=== PATIENT | male | born 1995 | race Caucasian/White ===

== ENCOUNTER 2024-01-04 10:22 | Inpatient (IN) ==
--- NOTE | 2024-01-04 10:47 | Emergency Department Note ---
Impression & Plan Pneumomediastinum, Cannabis hyperemesis syndrome concurrent with and due to cannabis abuse, Intractable nausea and vomiting, Leukocytosis ED Provider Note NAME: STEFAN HAMMOND AGE: 28 SEX: M : 1995 ARRIVES VIA: Walk-In INFORMANT: Patient ED PROVIDER(S): Nick Krause MD CHIEF COMPLAINT: Chest pain PLAN: Disposition: Admit MEDICAL DECISION MAKING: The patient is a pleasant 36-year-old gentleman with a past medical history of regular cannabis use who presents to the emergency department for evaluation of severe chest pain and neck pain which began last night in the setting of smoking marijuana and having intractable nausea and vomiting. He reports he has not had episodes of frequent vomiting in the past but has never been told that this could be due to his cannabis use. He otherwise denies any preceding infectious symptoms including denies fevers, chills, cough, congestion, diarrhea or urinary symptoms. On my evaluation patient is uncomfortable no acute distress, afebrile with heart in the 130s and vital signs otherwise stable. O2 saturation 99% on room air. Lungs are clear bilaterally. At the time my examination there is no overt palpable crepitus of the neck or chest. EKG is without overt acute ischemia. Per my preliminary independent interpretation, chest xray demonstrates pneumomediastinum without pneumothorax or pleural effusion. No consolidations are noted. WBC 18.5 K with neutrophil predominance though no left shift, nonspecific. Hemoglobin and platelets within normal limits. Chemistry without metabolic acidosis. Potassium 3.3 and electrolytes otherwise unremarkable. LFTs are unremarkable. High-sensitivity troponin 4.1, within normal limits. Lipase not elevated. Patient was treated with IV fluid hydration and Zofran but still with intermittent nausea/vomiting/retching. He was subsequent treated with IV Pepcid, Reglan, IV diphenhydramine for GI spasm and topical capsaicin with good effect and resolution of the patient's vomiting. Patient was treated empirically with IV Zosyn after blood cultures obtained while additional assessment was in progress. Case was discussed with pulmonology, Dr. Murillo. Appreciate consultation and recommendations. Agrees with CT imaging with p.o. contrast to assess for esophageal perforation. If perforation suggested patient would require transfer to tertiary care center where CT surgery is available. However if no esophageal injury is noted then it is reasonable to admit the patient to our facility. CT of the neck and chest was performed with IV and oral Gastrografin contrast. This was negative for esophageal injury. Pneumomediastinum is further characterized. Again there is no consolidation or pleural effusions. Upon reevaluation the patient continued to remain improved and comfortable without recurrence of vomiting. Heart rate had normalized to the 60s and blood pressure remained stable. Patient remained afebrile. Case was discussed with Capri Black, [facility] PAC, with Dr. Ayala, [facility] hospitalist who will evaluate the patient for admission. Case with [facility] [facility] by admitting team and myself. While patient's Gastrografin CT imaging is reassuring occult esophageal injury may not be completely excluded and so transfer was recommended in order to observe in a facility where the patient could receive immediate treatment if he were to clinically decline and concern for mediastinitis be raised. Patient did agree with request for transfer to tertiary care facility and case management did [place] and [place] he [place] [facility] [place] Case was discussed with Dr. Moya [facility] [place]. Appreciate consultation and recommendations. He was able to personally review the patient's CT images which were electronically transferred via [employer]. He felt the CT images with Gastrografin poor quality images and very reassuring and did not feel transfer for the patient was necessary as he considered - with high certainty - that esophageal injury did not occur. He would be readily available for our inpatient team consultation as needed. Recommends observation and if he does well over the next 24 hours then discharged with outpatient follow-up is appropriate. Dr. Ayala was updated and was in agreement this plan and will admit the patient for further management. The patient was also updated and was in agreement with this plan and continued to appear improved on my numerous reassessments. Dr. Marcum, GI, updated. PPI ordered per recommendations. Appreciate consultations and recommendations. Triage Nursing notes reviewed and agree them. Prior/external medical records reviewed Vital Signs: reviewed Differential diagnosis: Cardiac ischemia, aortic dissection, pulmonary embolism, pneumothorax, pneumonia, pericarditis, myocarditis, esophageal rupture, GERD, cholecystitis, pancreatitis, musculoskeletal, as well as other pathologies. ER treatment provided: See below. Diagnostics interpreted by me: ECG: Sinus tachycardia, 105 bpm, no ectopy, no overt ST elevation or depression. Cardiac Monitoring: An order for continuous cardiac monitoring was placed and demonstrated Sinus tachycardia, 105 bpm, no ectopy. Laboratory studies: See below Imaging studies: See below Consultation(s): Dr. Murillo, [place] pulmonology/[facility]. Capri Black, [facility] PAC, with Dr. Ayala, [facility] hospitalist Dr. Marcum, [facility] [facility] Dr. Moya, [facility] [place]. HPI: The patient is a pleasant 36-year-old gentleman with a past medical history of regular cannabis use who presents to the emergency department for evaluation of severe chest pain and neck pain which began last night in the setting of smoking marijuana and having intractable nausea and vomiting. He reports he has not had episodes of frequent vomiting in the past but has never been told that this could be due to his cannabis use. He otherwise denies any preceding infectious symptoms including denies fevers, chills, cough, congestion, diarrhea or urinary symptoms. ROS: See above HPI for pertinent positives & negatives. A total of 10 systems reviewed and were otherwise negative. VITALS:See Below PHYSICAL EXAMINATION: GENERAL: Awake, alert, uncomfortable-appearing, in no distress HENT: Normocephalic, atraumatic. Oropharynx with dry mucous membranes and otherwise unremarkable. EYES: Normal conjunctiva. Sclera non-icteric. NECK: Supple. No nuchal rigidity. FROM. No JVD. No overt palpable crepitus of the neck or chest. RESPIRATORY: Clear to auscultation. CARDIAC: Tachycardic rate, normal rhythm. Extremities warm and well perfused. Pulses equal. ABDOMEN: Soft, non-distended. No tenderness to palpation. No rebound or guarding. No masses. RECTAL: Deferred. MUSCULOSKELETAL: Chest examination reveals no tenderness. The back is symmetrical on inspection without obvious abnormality. There is no CVA tenderness to palpation. No joint edema. LOWER EXTREMITIES: Calves are equal size bilaterally and non-tender. No edema. No discoloration. NEURO: Normal sensorium. No sensory or motor deficits noted. SKIN: No rash or jaundice noted. ED COURSE: Critical Care: I have personally spent greater than 95 minutes of critical care time in the direct management of this patient. This includes bedside care, interpretation of diagnostic studies, and testing, discussion with consultants, patient, and family members, and other required patient management activities. This 95 minutes is in excess of all separately billable procedures. Nick Krause MD Past Med/Surg History Medical History Marijuana use Lumbar radiculopathy Surgical History No pertinent past surgical history Family History Other Diabetes Social History Smoking Status: Former smoker Tobacco Type: Cigarettes Age Started Using Tobacco: 21; Age Quit Using Tobacco: 26; packs per day: 1; Hx Alcohol Use: No Hx Substance Use: Yes (3 times per week) Non-Prescribed Medications: Marijuana Preferred Language: Martiniquais Feels Safe at Home: Yes Allergies Allergies Allergy/AdvReac Type Severity Reaction Status Date / Time codeine Allergy Severe Anaphylaxis Verified 01/04/24 17:40 Home Meds Home Medications Medication Instructions Recorded Confirmed duloxetine 30 mg capsule,delayed 60 mg PO DAILY 01/04/24 01/04/24 release Previous Rx's Medication Instructions Recorded ibuprofen 800 mg tablet 800 mg PO Q8H PRN pain #30 tabs 08/29/21 Results & Data (ED) Vital Signs Vital Signs - 24 hr 01/04/24 10:31 01/04/24 10:46 01/04/24 10:47 Temperature 36.6 C Temperature Source Temporal Artery Scan Pulse Rate 133 H Pulse Rate [Apical] 99 H Pulse Rate from SpO2 Sensor Respiratory Rate 14 21 Respiratory Effort / Characteristics Non-Labored Non-Labored Respiratory Depth Normal Normal Respiratory Pattern Regular Blood Pressure 125/72 Blood Pressure [Right Arm] 126/63 Blood Pressure Mean 89 Blood Pressure Mean [Right Arm] 84 Pulse Oximetry 99 96 Oxygen Delivery Method Room Air Room Air Oxygen Flow Rate Sepsis New/Unexplained Change in Mental Status No Sepsis Action Taken by Nursing No Action Required 01/04/24 10:47 01/04/24 10:48 01/04/24 10:48 Temperature Temperature Source Pulse Rate 105 H 98 H Pulse Rate [Apical] Pulse Rate from SpO2 Sensor 97 H Respiratory Rate 29 H 13 Respiratory Effort / Characteristics Respiratory Depth Respiratory Pattern Blood Pressure 126/63 Blood Pressure [Right Arm] Blood Pressure Mean 100 Blood Pressure Mean [Right Arm] Pulse Oximetry 94 Oxygen Delivery Method Oxygen Flow Rate Sepsis New/Unexplained Change in Mental Status Sepsis Action Taken by Nursing 01/04/24 10:50 01/04/24 10:51 01/04/24 11:00 Temperature Temperature Source Pulse Rate 90 100 H Pulse Rate [Apical] Pulse Rate from SpO2 Sensor 97 H 99 H Respiratory Rate 20 14 Respiratory Effort / Characteristics Respiratory Depth Respiratory Pattern Blood Pressure Blood Pressure [Right Arm] Blood Pressure Mean Blood Pressure Mean [Right Arm] Pulse Oximetry 95 95 96 Oxygen Delivery Method Room Air Oxygen Flow Rate 0 Sepsis New/Unexplained Change in Mental Status Sepsis Action Taken by Nursing 01/04/24 11:10 01/04/24 11:20 01/04/24 11:30 Temperature Temperature Source Pulse Rate 86 91 H 93 H Pulse Rate [Apical] Pulse Rate from SpO2 Sensor 86 96 H 102 H Respiratory Rate 19 22 18 Respiratory Effort / Characteristics Respiratory Depth Respiratory Pattern Blood Pressure Blood Pressure [Right Arm] Blood Pressure Mean Blood Pressure Mean [Right Arm] Pulse Oximetry 96 99 100 Oxygen Delivery Method Oxygen Flow Rate Sepsis New/Unexplained Change in Mental Status Sepsis Action Taken by Nursing 01/04/24 11:40 01/04/24 11:50 01/04/24 12:00 Temperature Temperature Source Pulse Rate 107 H 70 64 Pulse Rate [Apical] Pulse Rate from SpO2 Sensor 99 H 74 65 Respiratory Rate 22 12 21 Respiratory Effort / Characteristics Respiratory Depth Respiratory Pattern Blood Pressure Blood Pressure [Right Arm] Blood Pressure Mean Blood Pressure Mean [Right Arm] Pulse Oximetry 100 92 95 Oxygen Delivery Method Oxygen Flow Rate Sepsis New/Unexplained Change in Mental Status Sepsis Action Taken by Nursing 01/04/24 12:10 01/04/24 12:20 01/04/24 12:30 Temperature Temperature Source Pulse Rate 93 H 65 57 L Pulse Rate [Apical] Pulse Rate from SpO2 Sensor 92 H 67 59 L Respiratory Rate 14 22 20 Respiratory Effort / Characteristics Respiratory Depth Respiratory Pattern Blood Pressure Blood Pressure [Right Arm] Blood Pressure Mean Blood Pressure Mean [Right Arm] Pulse Oximetry 96 95 98 Oxygen Delivery Method Oxygen Flow Rate Sepsis New/Unexplained Change in Mental Status Sepsis Action Taken by Nursing 01/04/24 12:38 01/04/24 12:40 01/04/24 12:50 Temperature Temperature Source Pulse Rate 69 66 63 Pulse Rate [Apical] Pulse Rate from SpO2 Sensor 62 63 Respiratory Rate 21 19 Respiratory Effort / Characteristics Respiratory Depth Respiratory Pattern Blood Pressure Blood Pressure [Right Arm] Blood Pressure Mean Blood Pressure Mean [Right Arm] Pulse Oximetry 98 97 Oxygen Delivery Method Oxygen Flow Rate Sepsis New/Unexplained Change in Mental Status Sepsis Action Taken by Nursing 01/04/24 13:00 01/04/24 13:20 01/04/24 13:22 Temperature Temperature Source Pulse Rate 67 82 61 Pulse Rate [Apical] Pulse Rate from SpO2 Sensor 69 63 Respiratory Rate 18 20 26 H Respiratory Effort / Characteristics Respiratory Depth Respiratory Pattern Blood Pressure Blood Pressure [Right Arm] Blood Pressure Mean Blood Pressure Mean [Right Arm] Pulse Oximetry 97 98 Oxygen Delivery Method Oxygen Flow Rate Sepsis New/Unexplained Change in Mental Status Sepsis Action Taken by Nursing 01/04/24 13:22 01/04/24 13:30 01/04/24 13:30 Temperature Temperature Source Pulse Rate 80 Pulse Rate [Apical] Pulse Rate from SpO2 Sensor 76 Respiratory Rate 18 Respiratory Effort / Characteristics Respiratory Depth Respiratory Pattern Blood Pressure 142/85 H 144/74 H Blood Pressure [Right Arm] Blood Pressure Mean 89 87 Blood Pressure Mean [Right Arm] Pulse Oximetry 98 Oxygen Delivery Method Oxygen Flow Rate Sepsis New/Unexplained Change in Mental Status Sepsis Action Taken by Nursing 01/04/24 13:40 01/04/24 13:45 01/04/24 13:45 Temperature Temperature Source Pulse Rate 56 L 58 L Pulse Rate [Apical] Pulse Rate from SpO2 Sensor 55 L 56 L Respiratory Rate 19 17 Respiratory Effort / Characteristics Respiratory Depth Respiratory Pattern Blood Pressure 139/86 Blood Pressure [Right Arm] Blood Pressure Mean 95 Blood Pressure Mean [Right Arm] Pulse Oximetry 97 97 Oxygen Delivery Method Oxygen Flow Rate Sepsis New/Unexplained Change in Mental Status Sepsis Action Taken by Nursing 01/04/24 13:50 01/04/24 14:00 01/04/24 14:00 Temperature Temperature Source Pulse Rate 56 L 63 Pulse Rate [Apical] Pulse Rate from SpO2 Sensor 56 L 63 Respiratory Rate 20 20 Respiratory Effort / Characteristics Respiratory Depth Respiratory Pattern Blood Pressure 148/81 H Blood Pressure [Right Arm] Blood Pressure Mean 116 Blood Pressure Mean [Right Arm] Pulse Oximetry 97 97 Oxygen Delivery Method Oxygen Flow Rate Sepsis New/Unexplained Change in Mental Status Sepsis Action Taken by Nursing 01/04/24 14:10 01/04/24 14:15 01/04/24 14:15 Temperature Temperature Source Pulse Rate 89 69 Pulse Rate [Apical] Pulse Rate from SpO2 Sensor 92 H 68 Respiratory Rate 17 12 Respiratory Effort / Characteristics Respiratory Depth Respiratory Pattern Blood Pressure 130/77 Blood Pressure [Right Arm] Blood Pressure Mean 95 Blood Pressure Mean [Right Arm] Pulse Oximetry 98 97 Oxygen Delivery Method Oxygen Flow Rate Sepsis New/Unexplained Change in Mental Status Sepsis Action Taken by Nursing 01/04/24 14:20 01/04/24 14:21 01/04/24 14:30 Temperature Temperature Source Pulse Rate 70 66 Pulse Rate [Apical] Pulse Rate from SpO2 Sensor 63 Respiratory Rate 19 18 Respiratory Effort / Characteristics Respiratory Depth Respiratory Pattern Blood Pressure 116/69 Blood Pressure [Right Arm] Blood Pressure Mean 84 Blood Pressure Mean [Right Arm] Pulse Oximetry 97 97 Oxygen Delivery Method Room Air Oxygen Flow Rate 0 Sepsis New/Unexplained Change in Mental Status Sepsis Action Taken by Nursing 01/04/24 14:30 01/04/24 14:40 01/04/24 14:45 Temperature Temperature Source Pulse Rate 61 103 H 102 H Pulse Rate [Apical] Pulse Rate from SpO2 Sensor 62 102 H 100 H Respiratory Rate 13 20 22 Respiratory Effort / Characteristics Respiratory Depth Respiratory Pattern Blood Pressure Blood Pressure [Right Arm] Blood Pressure Mean Blood Pressure Mean [Right Arm] Pulse Oximetry 97 97 96 Oxygen Delivery Method Oxygen Flow Rate Sepsis New/Unexplained Change in Mental Status Sepsis Action Taken by Nursing 01/04/24 14:45 01/04/24 14:50 01/04/24 15:00 Temperature Temperature Source Pulse Rate 85 82 Pulse Rate [Apical] Pulse Rate from SpO2 Sensor 85 Respiratory Rate 22 20 Respiratory Effort / Characteristics Respiratory Depth Respiratory Pattern Blood Pressure 116/63 116/64 Blood Pressure [Right Arm] Blood Pressure Mean 78 81 Blood Pressure Mean [Right Arm] Pulse Oximetry 97 96 Oxygen Delivery Method Oxygen Flow Rate Sepsis New/Unexplained Change in Mental Status Sepsis Action Taken by Nursing 01/04/24 15:30 01/04/24 16:00 01/04/24 16:38 Temperature Temperature Source Pulse Rate 74 63 91 H Pulse Rate [Apical] Pulse Rate from SpO2 Sensor Respiratory Rate 12 15 Respiratory Effort / Characteristics Respiratory Depth Respiratory Pattern Blood Pressure 110/78 123/76 Blood Pressure [Right Arm] Blood Pressure Mean 88 91 Blood Pressure Mean [Right Arm] Pulse Oximetry 97 97 Oxygen Delivery Method Oxygen Flow Rate Sepsis New/Unexplained Change in Mental Status Sepsis Action Taken by Nursing 01/04/24 16:45 01/04/24 17:00 01/04/24 17:30 Temperature Temperature Source Pulse Rate 85 66 60 Pulse Rate [Apical] Pulse Rate from SpO2 Sensor Respiratory Rate 18 19 16 Respiratory Effort / Characteristics Respiratory Depth Respiratory Pattern Blood Pressure 129/77 120/70 117/70 Blood Pressure [Right Arm] Blood Pressure Mean 94 86 85 Blood Pressure Mean [Right Arm] Pulse Oximetry 100 99 98 Oxygen Delivery Method Oxygen Flow Rate Sepsis New/Unexplained Change in Mental Status Sepsis Action Taken by Nursing 01/04/24 17:45 01/04/24 19:00 01/04/24 19:45 Temperature Temperature Source Pulse Rate 68 83 71 Pulse Rate [Apical] Pulse Rate from SpO2 Sensor Respiratory Rate 21 17 15 Respiratory Effort / Characteristics Respiratory Depth Respiratory Pattern Blood Pressure 126/76 131/76 133/71 Blood Pressure [Right Arm] Blood Pressure Mean 92 94 91 Blood Pressure Mean [Right Arm] Pulse Oximetry 98 97 98 Oxygen Delivery Method Oxygen Flow Rate Sepsis New/Unexplained Change in Mental Status Sepsis Action Taken by Nursing Laboratory Data Attestation: I reviewed the patient's lab results. 01/04/24 10:44 01/04/24 10:44 Lab Results 01/04/24 01/04/24 Range/Units 10:44 15:03 WBC 18.51 H (4.8-10.8) K/ul RBC 4.65 L (4.70-6.10) M/uL Hgb 14.3 (14.0-18.0) g/dl Hct 39.9 L (42.0-52.0) % MCV 85.8 (80.0-100.0) fL MCH 30.8 (25.0-34.0) pg MCHC 35.8 (32.0-36.0) g/dL RDW Std Deviation 41.0 (36.4-46.3) fL RDW Coeff of Kris 13.2 (11.5-14.5) % Plt Count 157 (130-400) K/uL MPV 13.0 H (9.4-12.4) fL Immature Gran % (Auto) 0.4 % Neut % (Auto) 87.1 % Lymph % (Auto) 7.5 % Mcnairy % (Auto) 4.9 % Eos % (Auto) 0.0 % Baso % (Auto) 0.1 % Neut # (Auto) 16.13 H (1.40-6.50) K/uL Lymph # (Auto) 1.38 (1.20-3.40) K/uL Mcnairy # (Auto) 0.91 H (0.11-0.59) K/uL Eos # (Auto) 0.00 (0.00-0.50) K/uL Baso # (Auto) 0.02 (0.00-0.20) K/uL Immature Gran # (Auto) 0.07 (0.01-0.20) K/uL RBC Morphology Unremarkable PT 11.4 (9.0-12.0) Seconds INR 1.0 (0.9-1.1) Sodium 138 (136-145) mmol/L Potassium 3.3 L (3.5-5.1) mmol/L Chloride 105 (98-107) mmol/L Carbon Dioxide 21 (21-32) mmol/L Anion Gap 12 H (3-11) BUN 13 (6-23) mg/dl Creatinine 0.86 (0.6-1.4) mg/dl Est Cr Clr Drug Dosing Not Reportable Est GFR ( Amer) 134.9 ml/min Est GFR (Non-Af Amer) 116.4 ml/min BUN/Creatinine Ratio 15.1 (10-20) Glucose 136 H (70-99(Fasting)) mg/dl Calcium 9.6 (8.6-10.3) mg/dl Magnesium 1.7 (1.7-2.4) mg/dl Total Bilirubin 0.9 (0.2-1.0) mg/dl AST 18 (13-39) U/L ALT 20 (7-52) U/L Alkaline Phosphatase 55 (34-104) U/L Troponin I High Sens 4.1 (0-20) pg/ml Total Protein 7.4 (6.0-8.3) gm/dl Albumin 4.8 (3.4-5.0) gm/dl Globulin 2.6 (2.5-4.0) gm/dl Albumin/Globulin Ratio 1.8 (0.9-2) Lipase 12 (11-82) U/L Adenovirus (PCR) Not Detected (NotDetected) B. pertussis DNA (PCR) Not Detected (NotDetected) B.parapertussis DNA PCR Not Detected (NotDetected) C. pneumoniae DNA (PCR) Not Detected (NotDetected) Coronavirus OC43 (PCR) Not Detected (NotDetected) Coronavirus HKU1 (PCR) Not Detected (NotDetected) Coronavirus 229E (PCR) Not Detected (NotDetected) SARS-CoV-2 (PCR) Not Detected (NotDetected) Coronavirus NL63 (PCR) Not Detected (NotDetected) Human Metapneumovir PCR Not Detected (NotDetected) Influenza Type A (PCR) Not Detected (NotDetected) Influenza Type B (PCR) Not Detected (NotDetected) M. pneumoniae (PCR) Not Detected (NotDetected) Parainfluenza 1 (PCR) Not Detected (NotDetected) Parainfluenza 2 (PCR) Not Detected (NotDetected) Parainfluenza 3 (PCR) Not Detected (NotDetected) Parainfluenza 4 (PCR) Not Detected (NotDetected) RSV (PCR) Not Detected (NotDetected) Entero/Rhino (PCR) Not Detected (NotDetected) Administered Medications Discontinued Medications Capsaicin (Capsaicin Cr 0.075% 60 Gm Tube) 1 appln EXT NOW STA Stop: 01/04/24 11:31 Last Admin: 01/04/24 11:40 Dose: 1 appln Documented By: OSCAR Diphenhydramine HCl (Diphenhydramine 50 Mg/Ml Vial) 25 mg IV NOW STA Stop: 01/04/24 11:24 Last Admin: 01/04/24 11:34 Dose: 25 mg Documented By: OSCAR Sodium Chloride (Nss) 1,000 mls @ 999 mls/hr IV .Q1H1M ONE Stop: 01/04/24 11:35 Last Infusion: 01/04/24 12:23 Dose: Infused Documented By: Admin: 01/04/24 11:08 Dose: 999 mls/hr Documented By: OSCAR Famotidine (Pepcid 20mg Iv Push) 20 mg in 5 mls @ 2.5 mls/min IV NOW STA Stop: 01/04/24 10:36 Last Admin: 01/04/24 11:08 Dose: 2.5 mls/min Documented By: OSCAR Sodium Chloride (Nss) 1,000 mls @ 999 mls/hr IV .Q1H1M ONE Stop: 01/04/24 12:23 Last Infusion: 01/04/24 12:46 Dose: Infused Documented By: Admin: 01/04/24 11:35 Dose: 999 mls/hr Documented By: OSCAR Piperacillin Sod/Tazobactam Sod (Zosyn) 4.5 gm in 100 mls @ 200 mls/hr IV NOW ONE Stop: 01/04/24 11:59 Last Infusion: 01/04/24 13:02 Dose: Infused Documented By: Admin: 01/04/24 12:18 Dose: 200 mls/hr Documented By: OSCAR Lactated Ringer's (Lr) 1,000 mls @ 999 mls/hr IV .Q1H1M ONE Stop: 01/04/24 15:11 Last Infusion: 01/04/24 16:01 Dose: Infused Documented By: Admin: 01/04/24 14:59 Dose: 999 mls/hr Documented By: OSCAR Potassium Chloride (K Pradeep / Wtr) 10 meq in 100 mls @ 100 mls/hr IV Q1H IOANA Stop: 01/04/24 16:14 Last Infusion: 01/04/24 17:04 Dose: Infused Documented By: Admin: 01/04/24 16:00 Dose: 100 mls/hr Documented By: Infusion: 01/04/24 15:59 Dose: Infused Documented By: Admin: 01/04/24 14:59 Dose: 100 mls/hr Documented By: OSCAR Pantoprazole Sodium 40 mg/ (Syringe) 10 mls @ 5 mls/min IV NOW ONE Stop: 01/04/24 17:37 Last Admin: 01/04/24 17:52 Dose: 5 mls/min Documented By: TIM Ioversol (Optiray 320 100ml) 93 ml IV ONCE ONE Stop: 01/04/24 13:10 Last Admin: 01/04/24 13:10 Dose: 93 ml Documented By: COOPER Metoclopramide HCl (Metoclopramide Hcl Inj 5 Mg/Ml 2 Ml Vial) 5 mg IV ONE ONE Stop: 01/04/24 11:24 Last Admin: 01/04/24 11:34 Dose: 5 mg Documented By: OSCAR Morphine Sulfate (Morphine Sulfate 4 Mg/Ml 1 Ml Carp\Vial) 4 mg IV NOW STA Stop: 01/04/24 11:24 Last Admin: 01/04/24 11:34 Dose: 4 mg Documented By: OSCAR Morphine Sulfate (Morphine Sulfate 4 Mg/Ml 1 Ml Carp\Vial) 4 mg IV NOW STA Stop: 01/04/24 17:38 Last Admin: 01/04/24 17:51 Dose: 4 mg Documented By: TIM Ondansetron HCl (Ondansetron Inj 2 Mg/Ml 2 Ml Vial) 4 mg IV NOW STA Stop: 01/04/24 10:36 Last Admin: 01/04/24 11:09 Dose: 4 mg Documented By: OSCAR Imaging Data Radiologist's Impression: Chest X-Ray 01/04/24 10:35 XR chest 1V portable CLINICAL HISTORY: Chest pain, nonspecific COMPARISON STUDY: Chest radiograph October 27, 2023. FINDINGS: There is no pneumothorax or pleural effusion. A small amount of pneumomediastinum is present. This extends into the neck. There is gas within the right supraclavicular fossa. No consolidation is present. Cardiac size is normal. Mediastinal contours are normal. IMPRESSION: 1. Small amount of pneumomediastinum and small to moderate amount of soft tissue gas within the neck. 2. No pneumothorax. 3. No consolidation. ACT 112: Negative or not required by law. Electronically signed by: Mike Rocha M.D. 01/04/2024 11:[address] 01/04/24 11:58 CT OF THE CHEST WITH IV CONTRAST CLINICAL HISTORY: Pneumomediastinum. IV and PO contrast (gastrografin) to r/o esophageal perforation. COMPARISON STUDY: Chest radiograph performed earlier today. TECHNIQUE: Following IV administration of 93 mL of Optiray, helical axial images of the chest were obtained. Sagittal and coronal reconstructions were viewed as well as maximal intensity projections on an independent 3-D workstation. Automated exposure control was utilized for the study. A dose lowering technique was utilized adhering to the principles of ALARA. Water- soluble oral contrast was administered immediately prior to this study. CT DOSE: 1921.87 mGy.cm FINDINGS: There is moderate pneumomediastinum and soft tissue gas within the neck. No oral contrast extravasation is identified. There is no mediastinal fluid. No pneumothorax or pleural effusion is present. There is no consolidation to suggest pneumonia. Size of the heart is normal. No pericardial effusion. Visualized portions of the upper abdomen are unremarkable IMPRESSION: Moderate pneumomediastinum and associated soft tissue gas within the neck. No oral contrast extravasation. No mediastinal fluid, pleural effusion or pneumothorax. The source for the pneumomediastinum remains indeterminate and close clinical follow-up is recommended. ACT 112: Negative or not required by law. Electronically signed by: Mike Rocha M.D. 01/04/2024 1:43 PM Soft Tissue Neck CT 01/04/24 11:58 CT OF THE NECK WITH IV CONTRAST CLINICAL HISTORY: Pneumomediastinum. IV and PO contrast (gastrografin) to r/o esophageal perforation. COMPARISON STUDY: No previous studies for comparison. TECHNIQUE: Following IV administration of 93 mL of Optiray, helical axial images of the neck were obtained. Sagittal and coronal reconstructions were viewed. Automated exposure control was utilized for the study. A dose lowering technique was utilized adhering to the principles of ALARA. Water-soluble oral contrast was administered immediately prior to the CT. FINDINGS: Visualized portions of the intracranial contents are unremarkable. Mastoid air cells are clear. Sinuses are clear. The parotid and submandibular glands are normal. The epiglottis is normal. No fluid collections within the neck are noted. There is moderate soft tissue gas within neck, including prevertebral gas. Moderate pneumomediastinum is noted. This is better depicted on the chest CT which will be reported separately. The gas likely originates from the chest. No extraluminal contrast within the neck is present. IMPRESSION: Moderate soft tissue gas within the neck which originates from the chest given moderate pneumomediastinum. Source for pneumomediastinum not identified by CT however no extraluminal oral contrast within the neck. ACT 112: Negative or not required by law. Electronically signed by: Mike Rocha M.D. 01/04/2024 1:36 PM Discharge Plan Visit Data Chief Complaint: Cardiac Assessment Stated Complaint: CHEST PAIN, LEFT ARM PAIN, VOMITING ED Provider: Nick Krause Discharge Problem: Pneumomediastinum, Cannabis hyperemesis syndrome concurrent with and due to cannabis abuse, Intractable nausea and vomiting, Leukocytosis Discharge Instructions Interventions: ED Discharge Assessment Last Done: 01/04/24 20:34 Forms Stand Alone Forms: [employer] XII Prescriptions Prescriptions: No Action ibuprofen 800 mg tablet 800 mg PO Q8H PRN (Reason: pain) Qty: 30 0RF duloxetine 30 mg capsule,delayed release(DR/EC) 60 mg PO DAILY Referrals Referrals: PCP,NO [Physician] - Discharge Problem: Leukocytosis Qualifiers: Leukocytosis type: unspecified Qualified Code(s): D72.829 - Elevated white blood cell count, unspecified
[2024-01-04] MEDS: SODIUM CHLORIDE 0.9% 1,000 ML IV ONE ×2 (11:08→11:35)
[2024-01-04] MEDS: FAMOTIDINE 20MG IV PUSH 20 MG/5 ML SYR IV STA (11:08)
[2024-01-04] MEDS: ONDANSETRON INJ 2 MG/ML 2 ML VIAL IV STA (11:09)
--- NOTE | 2024-01-04 11:24 | XRay Report ---
XR chest 1V portable CLINICAL HISTORY: Chest pain, nonspecific COMPARISON STUDY: Chest radiograph October 27, 2023. FINDINGS: There is no pneumothorax or pleural effusion. A small amount of pneumomediastinum is presen t. This extends into the neck. There is gas within the right supraclavicular fossa. No consolidation is present. Cardiac size is normal. Mediastinal contours are normal. IMPRESSION: 1. Small amount of pneumomediastinum and small to moderate amount of soft tissue gas within the neck. 2. No pneumothorax. 3. No consolidation. ACT 112: Negative or not required by law. Electronically signed by: Mike Rocha M.D. 01/04/2024 11:22 AM
[2024-01-04 11:26] LABS: Alanine Aminotransferase 20 U/L (7-52); Albumin Globulin Ratio 1.8 (0.9-2); Albumin Level 4.8 gm/dl (3.4-5.0); Alkaline Phosphatase 55 U/L (34-104); Anion Gap 12 (3-11); Aspartate Aminotransferase 18 U/L (13-39); BUN Creatinine Ratio 15.1 (10-20); Bilirubin,Total 0.9 mg/dl (0.2-1.0); Blood Urea Nitrogen 13 mg/dl (6-23); Calcium 9.6 mg/dl (8.6-10.3); Carbon Dioxide 21 mmol/L (21-32); Chloride 105 mmol/L (98-107); Est GFR (African American) 134.9 ml/min; Est GFR (Non-African American) 116.4 ml/min; Globulin 2.6 gm/dl (2.5-4.0); Glucose 136 mg/dl (70-99(Fasting)); Lipase 12 U/L (11-82); Magnesium 1.7 mg/dl (1.7-2.4); Potassium 3.3 mmol/L (3.5-5.1); Sodium 138 mmol/L (136-145); Total Protein 7.4 gm/dl (6.0-8.3)
[2024-01-04 11:32] LABS: Troponin I High Sensitivity 4.1 pg/ml (0-20)
[2024-01-04 11:34] LABS: Basophils # (auto) 0.02 K/uL (0.00-0.20); Basophils % (auto) 0.1 %; Hematocrit (blood only) 39.9 % (42.0-52.0); Hemoglobin 14.3 g/dl (14.0-18.0); Immature Granulocytes # (auto) 0.07 K/uL (0.01-0.20); Immature Granulocytes % (auto) 0.4 %; Lymphocytes # (auto) 1.38 K/uL (1.20-3.40); Lymphocytes % (auto) 7.5 %; Mean Corpuscular Hemoglobin 30.8 pg (25.0-34.0); Mean Corpuscular Hgb Conc 35.8 g/dL (32.0-36.0); Mean Corpuscular Volume 85.8 fL (80.0-100.0); Monocytes # (auto) 0.91 K/uL (0.11-0.59); Monocytes % (auto) 4.9 %; Neutrophils # (auto) 16.13 K/uL (1.40-6.50); Neutrophils % (auto) 87.1 %; Platelet Count 157 K/uL (130-400); RBC Morphology Unremarkable; RDW Coefficient of Variation 13.2 % (11.5-14.5); Red Blood Count 4.65 M/uL (4.70-6.10); White Blood Count 18.51 K/ul (4.8-10.8)
[2024-01-04] MEDS: METOCLOPRAMIDE HCL INJ 5 MG/ML 2 ML VIAL IV ONE (11:34)
[2024-01-04] MEDS: MoRPHine SULFATE 4 MG/ML 1 ML CARP\\VIAL IV STA ×2 (11:34→17:51)
[2024-01-04] MEDS: diphenhydrAMINE 50 MG/ML VIAL IV STA (11:34)
[2024-01-04 11:37] LABS: Prothrombin Time 11.4 Seconds (9.0-12.0)
[2024-01-04] MEDS: CAPSAICIN CR 0.075% 60 GM TUBE EXT STA (11:40)
[2024-01-04] MEDS: PIPERACILLIN/TAZOBACTAM 4.5 GM/100 ML BAG IV ONE (12:18)
[2024-01-04] MEDS: OPTIRAY 320 100ml IV ONE (13:10)
--- NOTE | 2024-01-04 13:38 | CT Scan Report ---
CT OF THE NECK WITH IV CONTRAST CLINICAL HISTORY: Pneumomediastinum. IV and PO contrast (gastrografin) to r/o esophageal perforation. COMPARISON STUDY: No previous studies for comparison. TECHNIQUE: Following IV administration of 93 mL of Optiray, helical axial images of the neck were ob tained. Sagittal and coronal reconstructions were viewed. Automated exposure control was utilized f or the study. A dose lowering technique was utilized adhering to the principles of ALARA. Water-solu ble oral contrast was administered immediately prior to the CT. FINDINGS: Visualized portions of the intracranial contents are unremarkable. Mastoid air cells are c lear. Sinuses are clear. The parotid and submandibular glands are normal. The epiglottis is normal. N o fluid collections within the neck are noted. There is moderate soft tissue gas within neck, includi ng prevertebral gas. Moderate pneumomediastinum is noted. This is better depicted on the chest CT whi ch will be reported separately. The gas likely originates from the chest. No extraluminal contrast wi thin the neck is present. IMPRESSION: Moderate soft tissue gas within the neck which originates from the chest given moderate pneumomediast inum. Source for pneumomediastinum not identified by CT however no extraluminal oral contrast within the neck. ACT 112: Negative or not required by law. Electronically signed by: Mike Rocha M.D. 01/04/2024 1:36 PM
--- NOTE | 2024-01-04 13:38 | Electrocardiogram Report ---
Test Reason : Blood Pressure : / mmHG Vent. Rate : 105 BPM Atrial Rate : 105 BPM P-R Int : 160 ms QRS Dur : 092 ms QT Int : 338 ms P-R-T Axes : 075 074 045 degrees QTc Int : 446 ms Sinus tachycardia Otherwise normal ECG When compared with ECG of 27-OCT-2023 16:14, QT has lengthened Confirmed by Melvin Perkins ([id number]) on 01/04/2024 1:38:33 PM Referred By: [facility] Confirmed By:Melvin Perkins
--- NOTE | 2024-01-04 13:45 | CT Scan Report ---
CT OF THE CHEST WITH IV CONTRAST CLINICAL HISTORY: Pneumomediastinum. IV and PO contrast (gastrografin) to r/o esophageal perforation. COMPARISON STUDY: Chest radiograph performed earlier today. TECHNIQUE: Following IV administration of 93 mL of Optiray, helical axial images of the chest were o btained. Sagittal and coronal reconstructions were viewed as well as maximal intensity projections o n an independent 3-D workstation. Automated exposure control was utilized for the study. A dose low ering technique was utilized adhering to the principles of ALARA. Water-soluble oral contrast was adm inistered immediately prior to this study. CT DOSE: 1921.87 mGy.cm FINDINGS: There is moderate pneumomediastinum and soft tissue gas within the neck. No oral contrast e xtravasation is identified. There is no mediastinal fluid. No pneumothorax or pleural effusion is pre sent. There is no consolidation to suggest pneumonia. Size of the heart is normal. No pericardial eff usion. Visualized portions of the upper abdomen are unremarkable IMPRESSION: Moderate pneumomediastinum and associated soft tissue gas within the neck. No oral contrast extravasa tion. No mediastinal fluid, pleural effusion or pneumothorax. The source for the pneumomediastinum re miguel indeterminate and close clinical follow-up is recommended. ACT 112: Negative or not required by law. Electronically signed by: Mike Rocha M.D. 01/04/2024 1:43 PM
[2024-01-04] MEDS: POTASSIUM CHLORIDE / WTR 10 MEQ/100 ML PLCT IV SCH (14:59)
[2024-01-04] MEDS: LACTATED RINGER'S 1,000 ML IV ONE (14:59)
[2024-01-04 16:03] LABS: Adenovirus PCR Not Detected (NotDetected); Bordetella parapertussis PCR Not Detected (NotDetected); Bordetella pertussis PCR Not Detected (NotDetected); Chlamydia pneumoniae PCR Not Detected (NotDetected); Coronavirus 229E PCR Not Detected (NotDetected); Coronavirus CoV-2 (COVID19)PCR Not Detected (NotDetected); Coronavirus HKU1 PCR Not Detected (NotDetected); Coronavirus NL63 PCR Not Detected (NotDetected); Coronavirus OC43PCR Not Detected (NotDetected); Human Metapneumovirus PCR Not Detected (NotDetected); Influenza A PCR Not Detected (NotDetected); Influenza B PCR Not Detected (NotDetected); Mycoplasma pneumoniae PCR Not Detected (NotDetected); Parainfluenza Virus 1 PCR Not Detected (NotDetected); Parainfluenza Virus 2 PCR Not Detected (NotDetected); Parainfluenza Virus 3 PCR Not Detected (NotDetected); Parainfluenza Virus 4 PCR Not Detected (NotDetected); Respiratory Syncytial VirusPCR Not Detected (NotDetected); Rhinovirus/Enterovirus PCR Not Detected (NotDetected)
--- NOTE | 2024-01-04 17:31 | History & Physical Report ---
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 Start Zosyn recommended by GI, c/s GI, appreciate input start PPI continue analgesia monitor (2) SIRS due to non-infectious process without acute organ dysfunction: Plan: wbc > 12, HR > 90, RR > 20 d/t pneumomediastinum, could be developing pneumomediastinitis however remains afebrile and is non-toxic appearing continue to monitor with plan to admit here, transfer to [place] if pt worsens, discharge if improves CT surgery at [place] was engaged by ED MD, CTS reviewed images (3) Leukocytosis: Plan: reactive d/t pneumomediastinum start Zosyn (recommended by GI) (4) Hypokalemia: Plan: d/t GI losses repleted in ED continue to monitor for adequate repletion, replete further if needed (5) Elevated blood pressure reading without diagnosis of hypertension: Plan: likely pain mediated improved with symptomatic management continue to monitor (6) Intractable nausea and vomiting: Plan: continue antiemetics currently improved Admission and Anticipated Discharge Date Admission Date: admit 01/04/2024 anticipated d/c 01/06/2024 History of Present Illness Chief Complaint: chest pain Primary Care Provider: [facility] Mr. Cortes is a 28 year old male with no known significant pmhx. He presented d/t intractable CP associated with shortness of breath. CT chest with oral and IV contrast demonstrated pneumomediastinum of unclear etiology. 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 Mr. Cortes was in his usual state of health. 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 He was instantly severely fatigued to the point he believes his speech was slurred. He became nauseous and felt the urge to defecate. He had a small amount of solid stool and began vomiting. He developed chest pain described as pressure that radiated from "top of the rib cage" downward. He went home and spent the entire night vomiting clear yellow to brown-green liquid. This was associated with the chills and left forearm numbness. Chest pain and shortness of breath continued to worsen. He had a sensation of pressure in the center of his chest as though there was a mass present. Pain is rated as 7/10 at worst. Pain is improved with lying on the right side. Pain is exacerbated by laying supine or on the left side, and with activity. He tried stretching and massaging the affected area in case this was muscular without improvement. There is no known history of blood clots or connective tissue disorder in the family, though pt knows very little of fmhx as his family is mostly in [facility] and he does not have much contact with them. He denies any associated cough, congestion, abdominal pain, diarrhea, melena, hematochezia, brbpr, and constipation. He further denies any unusual activity or trauma. He had similar chest pain in October of this year that at the time was attributed to musculoskeletal in the setting of playing football and being hit in the chest. That episode of pain was not nearly as bad as this one. ED Course: VS notable for HR 100s, RR 20s, BP 140s/80s b/w notable for wbc 18.5, K 3.3. Remaining cbc, bmp unimpressive/wnl. Trop, lipase, LFTs all wnl. Respiratory pathogen panel PCR negative CXR read as "Small amount of pneumomediastinum and small to moderate amount of soft tissue gas within the neck." CT chest with IV and oral contrast read as "Moderate pneumomediastinum and associated soft tissue gas within the neck. No oral contrast extravasation. No mediastinal fluid, pleural effusion or pneumothorax. The source for the pneumomediastinum remains indeterminate and close clinical follow-up is recommended." ED discussed with CT surgery at [place] who recommended monitoring here, if pt improves then d/c. Pt admitted to hospitalist service. Will start IV PPI and Zosyn in case of developing mediastinitis. Allergies Allergy/AdvReac Type Severity Reaction Status Date / Time codeine Allergy Severe Anaphylaxis Verified 01/04/24 17:40 Home Medications Medication Instructions Recorded Confirmed Type ibuprofen 800 mg tablet 800 mg PO Q8H PRN pain #30 tabs 08/29/21 01/04/24 Rx duloxetine 30 mg capsule,delayed 60 mg PO DAILY 01/04/24 01/04/24 History release Past Med/Surg History Medical History Marijuana use Lumbar radiculopathy Surgical History No pertinent past surgical history Family History Other Diabetes Social History (Updated 01/04/24 @ 17:43 by Ivonne Ayala MD) Smoking Status: Former smoker Tobacco Type: Cigarettes Age Started Using Tobacco: 21; Age Quit Using Tobacco: 26; packs per day: 1; Hx Alcohol Use: No Hx Substance Use: Yes (3 times per week) Non-Prescribed Medications: Marijuana Preferred Language: Sami Feels Safe at Home: Yes Review of Systems Review of Systems: All systems reviewed & are unremarkable except as noted in HPI & below Physical Exam Physical Exam: General: NAD, well nourished, non-toxic appearing Head: NC AT Eyes: anicteric sclera, no conjunctival injection Nose: nares patent Mouth: MMM Neck: supple, trachea midline CV: RRR S1 S2 Pulm: CTA b/l Abd/GI: + BS, soft, TTP LUQ, ND, no guarding : no newberry Ext: no pretibial edema MSK: normal bulk and tone Neuro: alert, oriented x 3, moving all 4 extremities symmetrically, no focal deficits Psych: slightly anxious Skin: visible skin is warm, dry, and without rash. Pt not fully undressed for exam. Results & Data Results & Data Vital Signs (Past 12 Hours) Vital Signs Temp Pulse Pulse Resp BP BP Pulse Ox 01/04/24 17:00 66 19 120/70 99 01/04/24 16:45 85 18 129/77 100 01/04/24 16:38 91 H 01/04/24 16:00 63 15 123/76 97 01/04/24 15:30 74 12 110/78 97 01/04/24 15:00 82 20 116/64 96 01/04/24 14:50 85 22 97 01/04/24 14:45 116/63 01/04/24 14:45 102 H 22 96 01/04/24 14:40 103 H 20 97 01/04/24 14:30 61 13 97 01/04/24 14:30 116/69 01/04/24 14:21 66 18 97 01/04/24 14:20 70 19 97 01/04/24 14:15 69 12 97 01/04/24 14:15 130/77 01/04/24 14:10 89 17 98 01/04/24 14:00 63 20 97 01/04/24 14:00 148/81 H 01/04/24 13:50 56 L 20 97 01/04/24 13:45 58 L 17 97 01/04/24 13:45 139/86 01/04/24 13:40 56 L 19 97 01/04/24 13:30 80 18 98 01/04/24 13:30 144/74 H 01/04/24 13:22 142/85 H 01/04/24 13:22 61 26 H 98 01/04/24 13:20 82 20 01/04/24 13:00 67 18 97 01/04/24 12:50 63 19 97 01/04/24 12:40 66 21 98 01/04/24 12:38 69 01/04/24 12:30 57 L 20 98 01/04/24 12:20 65 22 95 01/04/24 12:10 93 H 14 96 01/04/24 12:00 64 21 95 01/04/24 11:50 70 12 92 01/04/24 11:40 107 H 22 100 01/04/24 11:30 93 H 18 100 01/04/24 11:20 91 H 22 99 01/04/24 11:10 86 19 96 01/04/24 11:00 100 H 14 96 01/04/24 10:51 95 01/04/24 10:50 90 20 95 01/04/24 10:48 98 H 13 94 01/04/24 10:48 126/63 01/04/24 10:47 105 H 29 H 01/04/24 10:47 99 H 21 126/63 96 01/04/24 10:31 36.6 C 133 H 14 125/72 99 O2 Del Method O2 Flow Rate 01/04/24 17:00 01/04/24 16:45 01/04/24 16:38 01/04/24 16:00 01/04/24 15:30 01/04/24 15:00 01/04/24 14:50 01/04/24 14:45 01/04/24 14:45 01/04/24 14:40 01/04/24 14:30 01/04/24 14:30 01/04/24 14:21 Room Air 0 01/04/24 14:20 01/04/24 14:15 01/04/24 14:15 01/04/24 14:10 01/04/24 14:00 01/04/24 14:00 01/04/24 13:50 01/04/24 13:45 01/04/24 13:45 01/04/24 13:40 01/04/24 13:30 01/04/24 13:30 01/04/24 13:22 01/04/24 13:22 01/04/24 13:20 01/04/24 13:00 01/04/24 12:50 01/04/24 12:40 01/04/24 12:38 01/04/24 12:30 01/04/24 12:20 01/04/24 12:10 01/04/24 12:00 01/04/24 11:50 01/04/24 11:40 01/04/24 11:30 01/04/24 11:20 01/04/24 11:10 01/04/24 11:00 01/04/24 10:51 Room Air 0 01/04/24 10:50 01/04/24 10:48 01/04/24 10:48 01/04/24 10:47 01/04/24 10:47 Room Air 01/04/24 10:31 Room Air Laboratory Results Short CBC 01/04/24 Range/Units 10:44 WBC 18.51 H (4.8-10.8) K/ul Hgb 14.3 (14.0-18.0) g/dl Hct 39.9 L (42.0-52.0) % Plt Count 157 (130-400) K/uL BMP 01/04/24 10:44 Sodium 138 Potassium 3.3 L Chloride 105 Carbon Dioxide 21 BUN 13 Creatinine 0.86 Glucose 136 H Calcium 9.6 Liver Function 01/04/24 Range/Units 10:44 Total Bilirubin 0.9 (0.2-1.0) mg/dl AST 18 (13-39) U/L ALT 20 (7-52) U/L Alkaline Phosphatase 55 (34-104) U/L Albumin 4.8 (3.4-5.0) gm/dl Diagnostic Findings Chest X-Ray 01/04/24 10:35 XR chest 1V portable CLINICAL HISTORY: Chest pain, nonspecific COMPARISON STUDY: Chest radiograph October 27, 2023. FINDINGS: There is no pneumothorax or pleural effusion. A small amount of pne umomediastinum is present. This extends into the neck. There is gas within the right supraclavicular fossa. No consolidation is present. Cardiac size is normal. Mediastinal contours are normal. IMPRESSION: 1. Small amount of pneumomediastinum and small to moderate amount of soft tissue gas within the neck. 2. No pneumothorax. 3. No consolidation. ACT 112: Negative or not required by law. Electronically signed by: Mike Rocha M.D. 01/04/2024 11:[address] 01/04/24 11:58 CT OF THE CHEST WITH IV CONTRAST CLINICAL HISTORY: Pneumomediastinum. IV and PO contrast (gastrografin) to r/o esophageal perforation. COMPARISON STUDY: Chest radiograph performed earlier today. FINDINGS: There is moderate pneumomediastinum and soft tissue gas within the neck. No oral contrast extravasation is identified. There is no mediastinal fluid. No pneumothorax or pleural effusion is present. There is no consolidation to suggest pneumonia. Size of the heart is normal. No pericardial effusion. Visualized portions of the upper abdomen are unremarkable IMPRESSION: Moderate pneumomediastinum and associated soft tissue gas within the neck. No oral contrast extravasation. No mediastinal fluid, pleural effusion or pneumothorax. The source for the pneumomediastinum remains indeterminate and close clinical follow-up is recommended. ACT 112: Negative or not required by law. Electronically signed by: Mike Rocha M.D. 01/04/2024 1:43 PM Soft Tissue Neck CT 01/04/24 11:58 CT OF THE NECK WITH IV CONTRAST CLINICAL HISTORY: Pneumomediastinum. IV and PO contrast (gastrografin) to r/o esophageal perforation. COMPARISON STUDY: No previous studies for comparison. FINDINGS: Visualized portions of the intracranial contents are unremarkable. Mastoid air cells are clear. Sinuses are clear. The parotid and submandibular glands are normal. The epiglottis is normal. No fluid collections within the neck are noted. There is moderate soft tissue gas within neck, including prevertebral gas. Moderate pneumomediastinum is noted. This is better depicted on the chest CT which will be reported separately. The gas likely originates from the chest. No extraluminal contrast within the neck is present. IMPRESSION: Moderate soft tissue gas within the neck which originates from the chest given moderate pneumomediastinum. Source for pneumomediastinum not identified by CT however no extraluminal oral contrast within the neck. ACT 112: Negative or not required by law. Electronically signed by: Mike Rocha M.D. 01/04/2024 1:36 PM Code Status & VTE Plan Code Status Full Code, verified with patient (3) Leukocytosis Leukocytosis type: unspecified Qualified Code(s): D72.829 - Elevated white blood cell count, unspecified
[2024-01-04] MEDS: PANTOprazole 40 MG in SYRINGE 0 ML IV ONE (17:52)
[2024-01-04] MEDS ORDERED: MoRPHine SULFATE 4 MG/ML 1 ML CARP\\VIAL IV PRN (20:50)
[2024-01-04] MEDS ORDERED: ALUMINUM/MAGNESIUM SUSP 30 ML UDC PO PRN (20:50)
[2024-01-04] MEDS: PANTOprazole 40 MG in SYRINGE 0 ML IV SCH (21:30)
[2024-01-04] MEDS: PIPER/TAZO 4.5g in D5W MINI-B 100 ML IV ONE (21:30)
[2024-01-04] MEDS: ACETAMINOPHEN 325 MG TAB PO PRN (21:30)
[2024-01-05] MEDS: PIPERACILLIN/TAZOBACTAM 4.5 GM in DEXTROSE 5% MINI-B 100 ML IV SCH (03:03)
[2024-01-05 06:00] LABS: BUN Creatinine Ratio 9.4 (10-20); Calcium 8.7 mg/dl (8.6-10.3); Creatinine Clr Calc Pharmacy 122.4 ml/min; Est GFR (African American) 108.6 ml/min; Est GFR (Non-African American) 93.7 ml/min; Potassium 3.6 mmol/L (3.5-5.1)
[2024-01-05 06:06] LABS: Hematocrit (blood only) 38.8 % (42.0-52.0); Hemoglobin 13.1 g/dl (14.0-18.0); Mean Corpuscular Hemoglobin 30.3 pg (25.0-34.0); Mean Corpuscular Hgb Conc 33.8 g/dL (32.0-36.0); Mean Corpuscular Volume 89.8 fL (80.0-100.0); Mean Platelet Volume 12.6 fL (9.4-12.4); Platelet Count 136 K/uL (130-400); RDW Coefficient of Variation 13.8 % (11.5-14.5); RDW Standard Deviation 45.8 fL (36.4-46.3); Red Blood Count 4.32 M/uL (4.70-6.10); White Blood Count 9.29 K/ul (4.8-10.8)
[2024-01-05] MEDS ORDERED: MoRPHine SULFATE 4 MG/ML 1 ML CARP\\VIAL IV PRN (07:18)
[2024-01-05] MEDS: DULoxetine HCL 60 MG CAP PO SCH (08:49)
--- NOTE | 2024-01-05 12:12 | Hospitalist Progress Note ---
Date of Service January 05, 2024 Assessment & Plan (1) Pneumomediastinum: Plan: Likely spontaneous pneumomediastinum Patient has sudden onset of chest pain symptoms developed nausea and vomiting afterwards. Risk factors include occasional vaping, lifting CT chest on admission showed moderate pneumomediastinum and associated soft tissue gas within the neck. Case was discussed with the ED doctor with Dr. Moya from CT surgery at [facility]; he reviewed the images. The images were reassuring and did not feel patient needed transfer. He felt with high certainty that is a esophageal injury did not occur. Recommended observation here. Patient is started on Zosyn recommended by GI, On Tessalon Perles for cough suppression Continue on PPI continue analgesia monitor (2) SIRS due to non-infectious process without acute organ dysfunction: Plan: wbc > 12, HR > 90, RR > 20 d/t pneumomediastinum, could be developing pneumomediastinitis however remains afebrile and is non-toxic appearing (3) Leukocytosis: Plan: reactive d/t pneumomediastinum Resolved (4) Hypokalemia: Plan: d/t GI losses repleted in ED continue to monitor for adequate repletion, replete further if needed (5) Elevated blood pressure reading without diagnosis of hypertension: Plan: likely pain mediated improved with symptomatic management continue to monitor (6) Intractable nausea and vomiting: Plan: continue antiemetics currently improved Plan Time spent evaluating patient, direct bedside care, chart review, placing orders, interpretation of diagnostic studies, discussion with consultants, patient, and family members, as well as other required patient management a ctivities is 50 minutes Please note the above document was generated using voice recognition software. It may contain grammatical, syntax or spelling errors. Any formal questions or concerns about the content, text or information contained within the body of this dictation should be directly addressed to the provider for clarification Admission and Anticipated Discharge Date Admission Date: January 04, 2024 Subjective Patient seen and examined at bedside. He reports that he is feeling much better; chest discomfort is minimal. He did not require any additional analgesic overnight Review of Systems Review of Systems: All systems reviewed & are unremarkable except as noted in Subjective Physical Exam Physical Exam: Constitutional: WD/WN, vitals as above, NAD, sitting up in bed, pleasant, conversing easily Respiratory: normal respiratory effort, lungs clear to auscultation, no wheeze, rales, rhonchi. Normal insp/exp effort, no accessory muscle use Cardiovascular: RRR, no murmur, no edema Vessels: no JVD or carotid bruit Chest: Mild tenderness on palpation of anterior chest and substernal region Abdomen: normal bowel sounds, soft, nontender, no hepatosplenomegaly Musculoskeletal: no cyanosis or clubbing, extremities motor strength 5/5 Skin: no rashes, warm and dry normal turgor Neurologic: PERRL, EOMI, accommodation nl, no face palsy, no dysarthria CN's II- XI intact bilaterally and moves all extremities Psychiatric: A+Ox3, euthymic affect Results & Data Results & Data Vital Signs (Past 12 Hours) Vital Signs Temp Pulse Pulse Resp BP Pulse Ox O2 Del Method 01/05/24 11:00 36.7 C 87 18 116/66 98 Room Air 01/05/24 08:00 36.8 C 76 16 115/61 96 Room Air 01/05/24 07:54 62 01/05/24 03:02 36.5 C 72 16 110/66 95 Room Air 01/05/24 00:44 36.6 C 72 16 123/71 94 Room Air (3) Leukocytosis Leukocytosis type: unspecified Qualified Code(s): D72.829 - Elevated white blood cell count, unspecified
--- NOTE | 2024-01-05 12:25 | Gastrointestinal Consultation ---
Date of Consultation January 05, 2024 History of Present Illness Attending Physician: Jeremiah Webb MD History of Present Illness Pt admit yesterday with substernal chest/neck pain rad to back occurring after pt wit mult episodes of forceful vomiting in the context of regular MJ use. He was afeb on admit but WBC 18, CT showed pneumomediastinum without obvious extrav, no esophageal wall thick. I saw him yesterday in ER. No history to suggest Eoe - no dysphagia, no atopy. Denies reflux sx. No alcohol. No NSAIDs. He is on Zosyn, has remained afeb, WBC decreased. He has mild persistent pain, antonio clears without difficulty, has pain when he attempted to eat toast. PE: Comfortable, although grimaces slightly when asked to dry swallow. He drinks water without difficulty. Neck: + crepitus. Chest: no crepitus. 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 Gastrograffin swallow today. Allergies Allergy/AdvReac Type Severity Reaction Status Date / Time codeine Allergy Severe Anaphylaxis Verified 01/04/24 17:40 Home Medications Medication Instructions Recorded Confirmed Type ibuprofen 800 mg tablet 800 mg PO Q8H PRN pain #30 tabs 08/29/21 01/04/24 Rx duloxetine 30 mg capsule,delayed 60 mg PO DAILY 01/04/24 01/04/24 History release Patient History Medical History Marijuana use Lumbar radiculopathy Surgical History No pertinent past surgical history Family History Other Diabetes Social History Smoking Status: Never smoker Tobacco Type: Cigarettes Age Started Using Tobacco: 21; Age Quit Using Tobacco: 26; packs per day: 1; Hx Alcohol Use: Yes Hx Substance Use: Yes Non-Prescribed Medications: Marijuana Preferred Language: Rwandan Communication Ability: Effective 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
--- NOTE | 2024-01-05 13:28 | XRay Report ---
XR chest 2V PA/lateral HISTORY: Follow-up pneumomediastinum. COMPARISON: Chest 01/04/2024. FINDINGS: Pneumomediastinum again noted as well as subcutaneous emphysema within the right neck base. This is similar to the prior study. No pneumothorax. No pleural fusions. The lungs are clear. No acu te fractures. IMPRESSION: Pneumomediastinum and subcutaneous emphysema within the right neck again noted. This is similar to th e prior study. ACT 112: Negative or not required by law. Electronically signed by: Pasquale Garg M.D. 01/05/2024 1:26 PM
[2024-01-05] MEDS: BENZONATATE 100 MG CAPSULE PO SCH (14:50)
--- NOTE | 2024-01-06 09:38 | Gastroenterology Progress Note ---
Date of Service January 06, 2024 Assessment & Plan (1) Pneumomediastinum: (2) Intractable nausea and vomiting: Plan: Pt is a 28 yo male seen w hx of n/v symptoms, noted to have pneumomediastinum on CT chest. - UGI series w gastrograffin eval - Diet advancement depending on study results as above - Questionable frequency of marijuana use? noted on his history but pt disagrees on what was noted in his chart. Recommended urine drug screen, but per hospitalist pt had refused - Pls recall GI prn. 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 The patient had been referred to a tertiary center however they felt that transfer was not indicated as medical monitoring was only needed. Recommendations Gastrografin swallow today If Gastrografin swallow is normal at status tolerated Protonix or equivalent 40 mg 1 time daily for 3 months Upper endoscopy to be scheduled as an outpatient in 8 to 12 weeks Subjective Pt was having clear liquid for breakfast. He and significant other were upset, concerned about information written in his H&P regarding marijuana use Review of Systems Review of Systems: All systems reviewed & are unremarkable except as noted in HPI & below Physical Exam Constitutional: WD/WN, vitals as above well groomed, cooperative and comfortable Eyes: PERRL, conjunctivae normal, anicteric sclerae ENMT: external ear and nose normal, oropharynx normal Respiratory: normal respiratory effort Skin: no rashes, warm and dry no jaundice Psychiatric: A+Ox3, euthymic affect Lymphatic: no lymphedema Results & Data Vital Signs (Past 12 Hours) Vital Signs Temp Pulse Pulse Resp BP Pulse Ox O2 Del Method 01/06/24 07:29 36.9 C 71 16 114/70 97 Room Air 01/06/24 07:00 54 L 01/06/24 03:10 36.7 C 57 L 16 104/61 98 Room Air 01/05/24 23:36 36.7 C 83 16 122/73 96 Room Air 01/05/24 22:00 79
--- NOTE | 2024-01-06 11:55 | Fluoroscopy Report ---
FL upper GI series wo air CLINICAL HISTORY: hx pneumomediastinum. Evaluate for esophageal injury/tear. COMPARISON STUDY: Chest CT 01/04/2024. FLUOROSCOPY TIME: 1 minute and 12 seconds. FLUOROSCOPY IMAGES: 14 Ka,r: 56.0 mGy FINDINGS: Pneumomediastinum again noted extending into the neck. The patient swallowed barium without difficulty. The esophagus is normal in course, caliber, motility. No hiatus hernia. No gastroesophag eal reflux demonstrated during the examination. No gastric ulcerations. The duodenal bulb and duodena l C-sweep appear unremarkable. No extravasation of contrast to suggest a perforation/leak. Specifical ly, no evidence for an esophageal tear. IMPRESSION: 1. Pneumomediastinum again noted. 2. No evidence for an esophageal injury/tear. ACT 112: Negative or not required by law. Electronically signed by: Pasquale Garg M.D. 01/06/2024 11:53 AM
[2024-01-06] MEDS: ONDANSETRON INJ 2 MG/ML 2 ML VIAL IV PRN (12:03)
--- NOTE | 2024-01-06 14:02 | Discharge Summary ---
Date of Service January 06, 2024 Admission HPI Per Admitting Provider Mr. Cortes is a 28 year old male with no known significant pmhx. He presented d/t intractable CP associated with shortness of breath. CT chest with oral and IV contrast demonstrated pneumomediastinum of unclear etiology. 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 Mr. Cortes was in his usual state of health. 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 He was instantly severely fatigued to the point he believes his speech was slurred. He became nauseous and felt the urge to defecate. He had a small amount of solid stool and began vomiting. He developed chest pain described as pressure that radiated from "top of the rib cage" downward. He went home and spent the entire night vomiting clear yellow to brown-green liquid. This was associated with the chills and left forearm numbness. Chest pain and shortness of breath continued to worsen. He had a sensation of pressure in the center of his chest as though there was a mass present. Pain is rated as 7/10 at worst. Pain is improved with lying on the right side. Pain is exacerbated by laying supine or on the left side, and with activity. He tried stretching and massaging the affected area in case this was muscular without improvement. There is no known history of blood clots or connective tissue disorder in the family, though pt knows very little of fmhx as his family is mostly in [facility] and he does not have much contact with them. He denies any associated cough, congestion, abdominal pain, diarrhea, melena, hematochezia, brbpr, and constipation. He further denies any unusual activity or trauma. He had similar chest pain in October of this year that at the time was attributed to musculoskeletal in the setting of playing football and being hit in the chest. That episode of pain was not nearly as bad as this one. ED Course: VS notable for HR 100s, RR 20s, BP 140s/80s b/w notable for wbc 18.5, K 3.3. Remaining cbc, bmp unimpressive/wnl. Trop, lipase, LFTs all wnl Respiratory pathogen panel PCR negative CXR read as "Small amount of pneumomediastinum and small to moderate amount of soft tissue gas within the neck." CT chest with IV and oral contrast read as "Moderate pneumomediastinum and associated soft tissue gas within the neck. No oral contrast extravasation. No mediastinal fluid, pleural effusion or pneumothorax. The source for the pneumo mediastinum remains indeterminate and close clinical follow-up is recommended." ED discussed with CT surgery at [place] who recommended monitoring here, if pt improves then d/c. Pt admitted to hospitalist service. Will start IV PPI and Zosyn in case of developing mediastinitis. Admission Exam Per Admitting Provider General: NAD, well nourished, non-toxic appearing Head: NC AT Eyes: anicteric sclera, no conjunctival injection Nose: nares patent Mouth: MMM Neck: supple, trachea midline CV: RRR S1 S2 Pulm: CTA b/l Abd/GI: + BS, soft, TTP LUQ, ND, no guarding : no newberry Ext: no pretibial edema MSK: normal bulk and tone Neuro: alert, oriented x 3, moving all 4 extremities symmetrically, no focal deficits Psych: slightly anxious Skin: visible skin is warm, dry, and without rash. Pt not fully undressed for exam. Principal Diagnosis Spontaneous pneumomediastinum Discharge Exam Constitutional: WD/WN, vitals as above, NAD, sitting up in bed, pleasant, conversing easily Respiratory: normal respiratory effort, lungs clear to auscultation, no wheeze, rales, rhonchi. Normal insp/exp effort, no accessory muscle use Cardiovascular: RRR, no murmur, no edema Vessels: no JVD or carotid bruit Chest: Mild tenderness on palpation of anterior chest and substernal region Abdomen: normal bowel sounds, soft, nontender, no hepatosplenomegaly Musculoskeletal: no cyanosis or clubbing, extremities motor strength 5/5 Skin: no rashes, warm and dry normal turgor Neurologic: PERRL, EOMI, accommodation nl, no face palsy, no dysarthria CN's II- XI intact bilaterally and moves all extremities Psychiatric: A+Ox3, euthymic affect Discharge Data Allergies Allergy/AdvReac Type Severity Reaction Status Date / Time codeine Allergy Severe Anaphylaxis Verified 01/04/24 17:40 Consultations 01/04/24 14:11 ED Decision to Admit Stat 01/04/24 20:50 Consult Gastroenterology Routine Ordered Studies 01/04/24 11:58 CT chest diagnostic w con Stat CT neck soft tissues [CT soft tissue neck w con] Stat Hospital Course (1) Pneumomediastinum: (2) SIRS due to non-infectious process without acute organ dysfunction: (3) Leukocytosis: (4) Hypokalemia: (5) Elevated blood pressure reading without diagnosis of hypertension: r (6) Intractable nausea and vomiting: Plan Likely spontaneous pneumomediastinum Patient has sudden onset of chest pain symptoms developed nausea and vomiting afterwards. Risk factors include occasional vaping, lifting CT chest on admission showed moderate pneumomediastinum and associated soft tissue gas within the neck. Case was discussed with the ED doctor with Dr. Moya from CT surgery at [facility]; he reviewed the images. The images were reassuring and did not feel patient needed transfer. He felt with high certainty that is a esophageal injury did not occur. Recommended observation here. Discussed with Dr. Moya on January 05, 2024; updated clinical status of the patient. He recommended patient can be discharged from the hospital. Discussed with GI PA on January 05; patient to undergo Gastrografin-no evidence of esophageal injury. Can be discharged from the hospital if negative. Gastrografin did not reveal any esophageal tear. At discharge, he was placed on cough suppressant, Patient to follow-up with PCP and obtain follow-up chest x-ray Follow-up with GI in obtaining endoscopy as outpatient. Please note the above document was generated using voice recognition software. It may contain grammatical, syntax or spelling errors. Any formal questions or concerns about the content, text or information contained within the body of this dictation should be directly addressed to the provider for clarification Total Time Total Time Spent Total Time Spent (In Minutes): 45 Total Time Includes: Examination of the Patient, Discharge Planning, Medication Reconciliation, Communication With Other Providers and Other Discharge Plan Discharge Items Patient Disposition: Home - Self-Care Reason For Visit: CHEST PAIN D/T PNEUMOMEDIASTINUM Discharge Diagnosis: Spontaneous pneumomediastinum Activity: Resume your previous activity Non-emergency contact: Primary Care Provider Call non-emergency contact if: you have any medication questions and your symptoms worsen Follow-up/Referrals: [facility]Hospital [Primary Care Provider] - ([facility] with [facility]. ) Diet: Regular Addtl Attending Provider Instructions: You were admitted to the hospital due to pneumomediastinum (air within the mediastinum). This likely spontaneous. The risk factor could include heavy lifting. Please follow-up with your primary care doctor in next 2 weeks and repeat a chest x-ray to ensure resolution of the pneumomediastinum. Please refrain from any smoking/vaping for next 2 weeks till you have a chest x- ray done. No heavy lifting for next 2 weeks still have a chest x-ray Pending Studies at Discharge: No Stand-Alone Forms: My [facility], Work/School Release, Smoking Cessation Medications and DC Order Prescriptions: New benzonatate 100 mg Capsule 100 mg PO TID 7 Days Qty: 21 0RF pantoprazole [Protonix] 40 mg tablet,delayed release (DR/EC) 40 mg PO DAILY 90 Days Qty: 90 0RF Continued duloxetine 30 mg capsule,delayed release(DR/EC) 60 mg PO DAILY Discontinued ibuprofen 800 mg tablet 800 mg PO Q8H PRN (Reason: pain) Qty: 30 0RF Discharge Orders: Discharge Order (Routine); Ordered 01/06/24 Ordered By: Jeremiah Webb Admission Data Admit Date/Time: 01/04/24 18:01 Attending Provider: Jeremiah Webb Admit Provider: Ivonne Ayala Primary Care Provider: [facility] Other Providers: Ivonne Ayala; Gualberto Marcum Other Interventions: Discharge Summary Assessment (RN) Last Done: 01/06/24 15:25
== END 2024-01-06 16:38 | disposition home or self-care (01) | DRG 199 ==
LOC: ED 10:22 → 4W 18:01 → SUATTDRO 18:01 → 4W 20:34

== ENCOUNTER 2024-08-10 16:21 | Inpatient (IN) ==
--- NOTE | 2024-08-10 16:26 | Emergency Department Note ---
Impression & Plan Depression with suicidal ideation, Post traumatic stress disorder (PTSD) ED Provider Note NAME: STEFAN HAMMOND AGE: 29 SEX: M : 1995 ARRIVES VIA: [employer] INFORMANT: Patient, ED PROVIDER(S): Ziyad Deutsch MD CHIEF COMPLAINT: Suicidal MEDICAL DECISION MAKING: Patient presents due to concern for suicidal ideation outbursts and anger. Patient does come in voluntarily but 302 petition was submitted. After evaluation the patient I think there is serious concern for the patient and his overall mental wellness and wellbeing. After further discussion with case management the 302 petition was upheld. Blood work was obtained patient was deemed medically cleared. Referrals were made. Patient was subsequently admitted to 3 S. Discussion w/ other healthcare providers: ED case management Prior /Outside records reviewed: None Differential diagnosis: Mood disorder, infection, hypoglycemia, electrolyte abnormalities, dehydration, medication side effect among others were considered. Diagnostics, as interpreted by me: ECG: None Medical decision rules: None Imaging studies: None HPI: Patient presents is a 302 brought in by police today. Reportedly the patient has had several calls to the [employer] crisis in the last month including 3 reporting that he would "blow his head off" among other phrases indicating self-harm. Patient has also made statements in the last month and also indicated wanting to harm somebody else. Patient is a with known PTSD. Patient currently does take 60 mg of duloxetine. Patient recently did lose his job at the [employer] or [employer]. 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 Patient denies any alcohol tobacco or drug use. The patient reports feeling safe at home. According to police they were concerned about the possibility of harm to the patient and his or even police staff that they had considered sending in a tactical team with the patient was unwilling to come in today. They did believe the patient would benefit from coming in due to concerns for his mental health and did complete a 302 petition. Patient currently denies any SI HI or AVH. The patient does not have access to guns or firearms per the patient. Patient does not wanting voluntary treatment today. The patient reportedly does [facility]. Patiently had followed with outpatient therapy but this person retired and the patient had yet to reestablish. PAST MEDICAL HISTORY: See Below PAST SURGICAL HISTORY: See Below SOCIAL HISTORY: See Below HOME MEDICATIONS: See Below ALLERGIES: See Below VITALS: See Below PHYSICAL EXAMINATION: GENERAL: Tearful. EYE EXAM: Normal conjunctiva. PERRL, no anisocoria and EOM's grossly intact w/o pain. OROPHARYNX: Moist mucus membranes, grossly normal dentition. NECK: Trachea midline, no stridor. Supple, no nuchal rigidity, no adenopathy, non-tender. No signs of meningismus. FROM of the neck with good chin to chest and neck extension. LUNGS: Clear to auscultation. Normal chest wall mechanics. HEART: NSR, no MRG. ABDOMEN: Abdomen soft, non-tender, no masses, no rebound or guarding. BACK: No CVA TTP. SKIN: No rashes and no bruising. UPPER EXTREMITIES: Upper extremities are grossly normal. LOWER EXTREMITIES: Grossly normal, no edema. NEURO EXAM: A&O x3, cranial nerves II-XII grossly intact, normal speech, moves all 4 extremities. Psych: Tearful, denies SI HI or AVH. Past Med/Surg History Problem List (Updated 08/10/24 @ 21:35 by Ziyad Deutsch MD) Post traumatic stress disorder (PTSD) (Acute) Depression with suicidal ideation (Acute) Elevated blood pressure reading without diagnosis of hypertension SIRS due to non-infectious process without acute organ dysfunction Leukocytosis (Acute) Intractable nausea and vomiting (Acute) Cannabis hyperemesis syndrome concurrent with and due to cannabis abuse (Acute) Pneumomediastinum (Acute) Medical History Hypokalemia Marijuana use Lumbar radiculopathy Surgical History No pertinent past surgical history Family History Other Diabetes Social History Smoking Status: Current every day smoker Tobacco Type: Cigarettes Age Started Using Tobacco: 21; Age Quit Using Tobacco: 26; packs per day: 1; Hx Alcohol Use: Yes Hx Substance Use: Yes Non-Prescribed Medications: Marijuana Preferred Language: Spanish Communication Ability: Effective Surface Supply Breathing Apparatus Required: No Beliefs That Will Affect Care: None Current Living Situation: Spouse Feels Safe at Home: Yes Gender Identity: Male Assistive Devices: None Allergies Allergies Allergy/AdvReac Type Severity Reaction Status Date / Time codeine Allergy Severe Anaphylaxis Verified 01/04/24 17:40 Home Meds Home Medications Medication Instructions Recorded Confirmed duloxetine 30 mg capsule,delayed 60 mg PO DAILY 01/04/24 08/10/24 release Results & Data (ED) Vital Signs Vital Signs - 24 hr 08/10/24 16:05 08/10/24 16:22 Temperature 36.6 C Temperature Source Temporal Artery Scan Pulse Rate 83 Pulse Rate [Apical] 63 Respiratory Rate 18 Blood Pressure 119/82 Blood Pressure Mean 94 Pulse Oximetry 96 Sepsis Recent Fever Within 48 Hours No Sepsis New/Unexplained Change in Mental Status N/A Sepsis Action Taken by Nursing No Action Required Home Medications Current Medication List: was personally reviewed by me Laboratory Data Attestation: I reviewed the patient's lab results. 08/10/24 16:30 08/10/24 16:30 Lab Results 08/10/24 08/10/24 Range/Units 16:20 16:30 WBC 5.77 (4.8-10.8) K/ul RBC 4.70 (4.70-6.10) M/uL Hgb 14.2 (14.0-18.0) g/dl Hct 42.4 (42.0-52.0) % MCV 90.2 (80.0-100.0) fL MCH 30.2 (25.0-34.0) pg MCHC 33.5 (32.0-36.0) g/dL RDW Std Deviation 43.5 (36.4-46.3) fL RDW Coeff of Kris 13.1 (11.5-14.5) % Plt Count 140 (130-400) K/uL MPV 12.5 H (9.4-12.4) fL Immature Gran % (Auto) 0.0 % Neut % (Auto) 48.7 % Lymph % (Auto) 41.6 % [place] % (Auto) 7.6 % Eos % (Auto) 1.2 % Baso % (Auto) 0.9 % Neut # (Auto) 2.81 (1.40-6.50) K/uL Lymph # (Auto) 2.40 (1.20-3.40) K/uL [place] # (Auto) 0.44 (0.11-0.59) K/uL Eos # (Auto) 0.07 (0.00-0.50) K/uL Baso # (Auto) 0.05 (0.00-0.20) K/uL Immature Gran # (Auto) 0.00 L (0.01-0.20) K/uL Sodium 142 (136-145) mmol/L Potassium 4.1 (3.5-5.1) mmol/L Chloride 108 H (98-107) mmol/L Carbon Dioxide 28 (21-32) mmol/L Anion Gap 6 (3-11) BUN 12 (6-23) mg/dl Creatinine 0.89 (0.6-1.4) mg/dl Est Cr Clr Drug Dosing 144.9 ml/min eGFR 117.50 BUN/Creatinine Ratio 13.5 (10-20) Glucose 117 H (70-99(Fasting)) mg/dl Calcium 9.3 (8.6-10.3) mg/dl Total Bilirubin 0.7 (0.2-1.0) mg/dl AST 17 (13-39) U/L ALT 17 (7-52) U/L Alkaline Phosphatase 46 (34-104) U/L Total Protein 6.8 (6.0-8.3) gm/dl Albumin 4.5 (3.4-5.0) gm/dl Globulin 2.3 L (2.5-4.0) gm/dl Albumin/Globulin Ratio 2.0 (0.9-2) TSH 0.229 L (0.300-4.500) uIu/ml Free T4 0.80 (0.61-1.60) ng/dl Urine Color Yellow Urine Appearance Clear (Clear) Urine pH 6.5 (4.5-7.5) Ur Specific [place] 1.026 (1.000-1.030) Urine Protein Negative (Negative) Urine Glucose (UA) Negative (Negative) Urine Ketones Trace H (Negative) Urine Blood Negative (Negative) Urine Nitrite Negative (Negative) Urine Bilirubin Negative (Negative) Urine Urobilinogen Negative (Negative) Ur Leukocyte Esterase Trace H (Negative) Urine WBC (Auto) 0-5 (0-5) /hpf Urine RBC (Auto) 0-2 (0-2) /hpf U Hyaline Cast (Auto) 0-2 (0-2) /lpf U Epithel Cells (Auto) 0-2 (0-2) /hpf Urine Bacteria (Auto) None Seen (None Seen) Salicylates < 3.0 L (3.0-30) mg/dl Urine Opiates Screen Neg (Neg) Ur Methadone, Qual Neg (Neg) Urine Fentanyl Screen Neg (Neg) Acetaminophen < 3 L (10-30) ug/ml Urine Barbiturates Neg (Neg) Ur Phencyclidine (PCP) Neg (Neg) U Amphetamin/Meth Scrn Neg (Neg) MDMA (Ecstasy) Screen Neg (Neg) U Benzodiazepines Scrn Neg (Neg) Ur Cocaine Metabolite Neg (Neg) U Marijuana (THC) Screen Pos H (Neg) Ethyl Alcohol mg/dL < 10.0 (<10.0) mg/dl SARS-CoV-2, RNA, NAAT NEGATIVE (NEGATIVE) Administered Medications Duloxetine HCl (Duloxetine Hcl 60 Mg Cap) [facility] [place]: 09/09/24 16:59 Last Admin: 08/10/24 17:49 Dose: 60 mg Documented By: MURPHY Discharge Plan Visit Data Chief Complaint: Mental Health Evaluation Stated Complaint: 302 ED Provider: Ziyad Deutsch Discharge Problem: Depression with suicidal ideation, Post traumatic stress disorder (PTSD) Patient Disposition: Admitted As Inpatient Discharge Instructions Interventions: ED Discharge Assessment Last Done: 08/10/24 21:20
[2024-08-10 16:44] VITALS: O2SAT 96
[2024-08-10 17:05] LABS: Albumin Level 4.5 gm/dl (3.4-5.0); BUN Creatinine Ratio 13.5 (10-20); Bilirubin,Total 0.7 mg/dl (0.2-1.0); Calcium 9.3 mg/dl (8.6-10.3); Creatinine Clr Calc Pharmacy 144.9 ml/min; Globulin 2.3 gm/dl (2.5-4.0); Potassium 4.1 mmol/L (3.5-5.1); Total Protein 6.8 gm/dl (6.0-8.3)
[2024-08-10 17:15] LABS: Appearance Urine Clear (Clear); Bacteria Urine Automated None Seen (None Seen); Bilirubin Urine Negative (Negative); Blood Urine Negative (Negative); Cast Urine Automated 0-2 /lpf (0-2); Color Urine Yellow; Epithelial Cell Urine Auto 0-2 /hpf (0-2); Glucose Urine UA Negative (Negative); Ketones Urine Trace (Negative); Leukocyte Esterase Urine Trace (Negative); Nitrite Urine Negative (Negative); Protein Urine Negative (Negative); RBC Urine Automated 0-2 /hpf (0-2); Specific Gravity Urine 1.026 (1.000-1.030); Urobilinogen Urine Negative (Negative); WBC Urine Automated 0-5 /hpf (0-5); pH Urine 6.5 (4.5-7.5)
[2024-08-10 17:19] LABS: Thyroid Stimulating Hormone 0.229 uIu/ml (0.300-4.500)
[2024-08-10 17:23] LABS: Amphetamines+Metham, Urine Neg (Neg); Barbiturates, Urine Neg (Neg); Benzodiazepine, Urine Neg (Neg); Cocaine, Urine Neg (Neg); Fentanyl, Urine Neg (Neg); MDMA (Ecstacy), Urine Neg (Neg); Marijuana, Urine Pos (Neg); Methadone, Urine Neg (Neg); Opiate, Urine Neg (Neg); Phencyclidine, Urine Neg (Neg)
[2024-08-10 17:44] LABS: Basophils # (auto) 0.05 K/uL (0.00-0.20); Basophils % (auto) 0.9 %; Eosinophils # (auto) 0.07 K/uL (0.00-0.50); Eosinophils % (auto) 1.2 %; Hematocrit (blood only) 42.4 % (42.0-52.0); Hemoglobin 14.2 g/dl (14.0-18.0); Lymphocytes % (auto) 41.6 %; Mean Corpuscular Hemoglobin 30.2 pg (25.0-34.0); Mean Corpuscular Hgb Conc 33.5 g/dL (32.0-36.0); Mean Corpuscular Volume 90.2 fL (80.0-100.0); Mean Platelet Volume 12.5 fL (9.4-12.4); Monocytes # (auto) 0.44 K/uL (0.11-0.59); Monocytes % (auto) 7.6 %; Neutrophils # (auto) 2.81 K/uL (1.40-6.50); Neutrophils % (auto) 48.7 %; Platelet Count 140 K/uL (130-400); RDW Coefficient of Variation 13.1 % (11.5-14.5); RDW Standard Deviation 43.5 fL (36.4-46.3); White Blood Count 5.77 K/ul (4.8-10.8)
[2024-08-10] MEDS: DULoxetine HCL 60 MG CAP PO SCH (17:49)
[2024-08-10 17:55] LABS: T4 Free Thyroxine 0.8 ng/dl (0.61-1.60)
[2024-08-10 17:56] LABS: Acetaminophen < 3 ug/ml (10-30); Salicylate < 3.0 mg/dl (3.0-30)
[2024-08-10] MEDS ORDERED: hydrOXYzine HCl 25 MG TAB PO PRN ×5 (21:03→22:08)
[2024-08-10] MEDS ORDERED: BISMUTH SUBSALICYLATE 262 MG CHEW PO PRN ×2 (21:29→22:08)
[2024-08-10] MEDS ORDERED: MAGNESIUM HYDROXIDE SUSP 30 ML UDC PO PRN ×2 (21:29→22:08)
[2024-08-10] MEDS ORDERED: SODIUM CHLORIDE 0.65% NA SOLN 45 ML (OCEAN) PRN ×2 (21:29→22:08)
[2024-08-10] MEDS ORDERED: ACETAMINOPHEN 325 MG TAB PO PRN ×2 (21:29→22:08)
[2024-08-10] MEDS ORDERED: ALUMINUM/MAGNESIUM SUSP 30 ML UDC PO PRN ×2 (21:29→22:08)
[2024-08-10] MEDS ORDERED: haloperidoL 5 MG TAB PO PRN (22:11)
[2024-08-11 06:41] VITALS: RESP 16
[2024-08-11] MEDS: DULoxetine HCL 60 MG CAP PO SCH (08:58)
[2024-08-11] MEDS: LIDOCAINE 5% 1 PATCH TD SCH (12:40)
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
[2024-08-12 06:40] VITALS: TEMP 98.1
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
[2024-08-12 10:04] VITALS: BP 120/80; PULSE 80
[2024-08-13 03:28] LABS: Marijuana Quant, GCMS Urine >5000 ng/mL (<5)
== END 2024-08-12 11:00 | disposition home or self-care (01) | DRG 882 ==
LOC: ED 16:21 → 3S 21:14

== ENCOUNTER 2024-10-27 08:56 | Inpatient (IN) ==
--- NOTE | 2024-10-12 13:28 | Anesthesiology Consultation ---
Date of Service October 12, 2024 Assessment & Plan (1) Encounter for pre-operative examination: Chart Review Chart Review: Acceptable Risk for Surgery and Patient NOT seen in Pre Admission Testing -Infectious Disease screening: Per PAT nursing assessment on 10/12/24. No known infectious disease contacts in past 10 days or current infectious disease symptoms. No recent travel outside the country. History Surgery Operation Date: 10/27/24 10:50 Proposed Procedures p Robotic Laparoscopic Assisted Partial Nephrectomy - Left - Erlin Cha MD Height/Weight Height: 5 ft 10 in Weight: 92.986 kg Allergies Allergy/AdvReac Type Severity Reaction Status Date / Time codeine Allergy Severe Anaphylaxis Verified 10/12/24 12:59 Medications Home Medications Medication Instructions Recorded Confirmed Last Taken hydroxyzine HCl 10 mg tablet 10 mg PO TID PRN Anxiety/ptsd 10/05/24 10/12/24 U nknown prazosin 1 mg capsule 1 mg PO QPM 10/05/24 10/12/24 Unknown venlafaxine 75 mg tablet 75 mg PO QAM 10/05/24 10/12/24 Unknown Past Medical History Medical History Anxiety Elevated blood pressure reading without diagnosis of hypertension Lumbar radiculopathy Marijuana use medical marijuana, has not used since aug 21, 2024 PTSD (post-traumatic stress disorder) Renal mass Past Family History Family History Other Diabetes Past Surgical History Surgical History Hx of wisdom tooth extraction Social History Smoking Status: Former smoker tobacco type: cigarettes Do You Dip or Chew Tobacco: No Smoking End Date: Aug 21, 2024 Hx Alcohol Use: Yes alcohol intake frequency: a few times a month Hx Substance Use: Yes substance use type: marijuana Last Used Substance Other:: medical marijuana prn (advised) Lab Results Anesthesia Preop Results Results Anesthesia Widget: WBC 7.69 K/ul (4.8-10.8) 10/05/24 Hgb 13.9 g/dl (14.0-18.0) L 10/05/24 Hct 41.0 % (42.0-52.0) L 10/05/24 Plt 185 K/uL (130-400) 10/05/24 Na 139 mmol/L (136-145) 10/05/24 K 4.1 mmol/L (3.5-5.1) 10/05/24 Cl 105 mmol/L (98-107) 10/05/24 CO2 28 mmol/L (21-32) 10/05/24 BUN 12 mg/dl (6-23) 10/05/24 Creat 0.94 mg/dl (0.6-1.4) 10/05/24 Glucose Level 89 mg/dl (70-99(Fasting)) 10/05/24 PT 11.3 Seconds (9.0-12.0) 08/21/24 PTT 24 Seconds (21-31) 08/21/24 INR 1.0 (0.9-1.1) 08/21/24 Testing Laboratory Results 10/05/24= URINE CULTURE: No growth- less than 1000 colonies/mL Electrocardiogram Date: 08/21/24 NSR with sinus arrhythmia at 83bpm Incomplete RBBB When compared to EKG from January 04, 2024- no significant change was found per cardio Other Testing Chest CTA 08/21/24= No acute findings in the visualized arteries of the chest. There is a 1.2 cm bulla or pneumatocele within the right upper lobe. No mass. Pleural space: Unremarkable. No significant effusion. No pneumothorax. Abdomen/Pelvis CT 08/21/24= No acute abdominal process identified. 3.9 cm left renal cortical mass lesion. The primary differential diagnosis is that of renal cell carcinoma
[2024-10-27] MEDS: LR 15ML/HR IV SCH (09:37)
[2024-10-27] MEDS ORDERED: ePHEDrine sulfate 50 MG/ML AMP IV PRN (11:08)
[2024-10-27] MEDS ORDERED: ATROPINE SULFATE 0.1 MG/ML 10ML SYR IV PRN (11:08)
[2024-10-27] MEDS ORDERED: ONDANSETRON INJ 2 MG/ML 2 ML VIAL IV PRN (11:08)
[2024-10-27] MEDS ORDERED: fentaNYL citrate PF 100 MCG/2 ML VIAL IV PRN (11:08)
[2024-10-27] MEDS ORDERED: PROMETHAZINE HCL 6.25 MG in SODIUM CHLORIDE 0.9% 50 ML IV PRN (11:08)
[2024-10-27] MEDS ORDERED: MIDAZOLAM HCL 1 MG/ML 2ML VIAL ONE ×2 (11:25→15:06)
[2024-10-27] MEDS ORDERED: ONDANSETRON INJ 2 MG/ML 2 ML VIAL ONE (11:25)
[2024-10-27] MEDS ORDERED: PROPOFOL IV EMULSION 10 MG/ML 20 ML VIAL IV ONE (11:25)
[2024-10-27] MEDS ORDERED: DEXAMETHASONE SOD INJ 4 MG/ML VIAL ONE (11:25)
[2024-10-27] MEDS ORDERED: LIDOCAINE 2% 2 ML VIAL/AMP(20MG/ML) INFIL ONE (11:25)
[2024-10-27] MEDS ORDERED: ROCURONIUM BROMIDE 10 MG/ML 5 ML VIAL IV ONE ×2 (11:26→12:22)
[2024-10-27] MEDS ORDERED: fentaNYL citrate PF 100 MCG/2 ML VIAL ONE ×4 (11:26→14:04)
--- NOTE | 2024-10-27 11:30 | History & Physical Bridge Note ---
Date of Service October 27, 2024 History & Physical Bridge Note I have examined the patient, reviewed the History & Physical and in the interval since the performance of the History & Physical I have noted the following changes of clinical significance: no changes noted
[2024-10-27] MEDS ORDERED: ACETAMINOPHEN 1000 MG/100 ML IV IV ONE (11:52)
[2024-10-27] MEDS ORDERED: KETAMINE HCL 10MG/ML SYR ONE (11:53)
[2024-10-27] MEDS: ceFAZolin 2000MG 2,000 MG/15 ML SYR IV SCH ×2 (12:56→18:43)
[2024-10-27] MEDS ORDERED: KETOROLAC 30 MG/ML VIAL ONE (13:31)
[2024-10-27] MEDS ORDERED: SUGAMMADEX SODIUM 200 MG/2 ML VIAL IV ONE (13:32)
[2024-10-27] MEDS ORDERED: MANNITOL 25% 12.5 GM/50 ML VIAL IV ONE ×2 (13:56→14:10)
[2024-10-27] MEDS: BUPIVACAINE 0.5 % 5 MG/1 ML MPF 30ML VIAL ONE (14:58)
--- NOTE | 2024-10-27 15:25 | Operative Report ---
PG Post Operative Report Pre & Post Diagnosis Operation Date: 10/27/24 11:30 Pre-Op Diagnosis: Renal mass Post-Op Diagnosis: Renal mass I identified the patient and participated in the time-out.: Yes Procedure Operation Date: 10/27/24 11:30 Actual Procedures p Robotic Assisted Laparoscopic Partial Nephrectomy - Left(Left) - Erlin Cha MD Surgeon Erlin Cha MD Transformer Repairer Ankit Wilhelm; Alysha Harris Estimated Blood Loss 25 Findings Consistent with Post-Op Diagnosis Specimens Left renal mass Description of Procedure The patient was identified in the preoperative holding area, appropriate informed consents were reviewed and completed and the patient was transferred to the operative suite. Upon arrival in the operative suite adequate general anesthesia was achieved and he was placed in a [id number] left side up lateral decubitus position with the bed flexed. He was padded and braced appropriately. He also underwent sterile prep and drape. I insufflated the abdomen with a Veress needle passed per umbilicus. We then marked tentative port sites with 3 robotic ports positioned just lateral to the rectus border with the top port being just under the costal margin followed by the 2 lower ports each being approximately 8 cm inferior to the port above it. I marked a midline incision approximately 6 cm above the umbilicus and an infraumbilical incision as well. I initially entered the abdomen with the mid robotic port and inspected. No adhesions in his abdominal wall was extremely healthy. I placed all other ports in the expected locations without difficulty. The 2 midline ports were both 12 mm res habilitation assistant ports. We then docked the robot. I incised the white line of Toldt first. This medialized the colon. I also dissected slightly between the colon and the spleen to allow further medialization of the upper aspect of the splenic flexure of the colon. I then dissected along the lower margin of the kidney and identified the ureter and the gonadal vein. I medialized the gonadal vein and dissected medial to the ureter onto the psoas muscle which allowed a plan for elevation of the kidney and extension/stretch of the hilar vessels. I followed the anterior surface of the gonadal vein until we reached the inferior margin of the renal vein. I dissected anteriorly to the renal vein and circumferentially cleared this vein. It was a solitary vein with branching close to the kidney but not near the gonadal area. I then dissected superior to the renal vein and immediately identified the renal artery which was singular. After skeletonizing this area we thought that the hilar dissection was complete and I turned my attention to the mass itself. He has extremely scant perinephric fat. This allowed a clear demarcation of a protuberance in the middle area of the kidney consistent with the location of the tumor seen on imaging prior to surgery. I dissected through the small amount of Gerota's fascia and skeletonized the surface of the kidney leaving a Of fat over the tumor itself to be utilized for mobilization and handling of the tumor. I then performed a laparoscopic ultrasound of the kidney and mass. I performed a full survey of the kidney first identifying renal parenchyma that was quite healthy in appearance throughout the majority of the kidney with the exception of the tumor itself. The protuberant region was confirmed to be the mass. I marked the border of the mass and my anticipated location for incision into the kidney. At that time we prepositioned to renorrhaphy stitches within the abdomen. The stitches are 2 oh V-Loc sutures with Hemo lock and Weck clips placed at the end. We then administered 12.[address] Wilhelm joined the case at that time to assist with the wu portions. We placed a short curved bulldog clamp across the renal artery and marked at the time. We then placed a long straight bulldog clamp across the renal vein and I began dissection of the mass. I incised the renal capsule and cortex utilizing a combination of sharp dissection and electrocautery. I then dissected deeper and followed the expected contour of the mass. I was consistently inspecting throughout this dissection to confirm that we had not encroached upon the mass and hemostasis was excellent. After to entirely freeing the mass following the lines that were marked prior to resection, the mass was moved out of our resection field and renorrhaphy initiated. Utilizing the preposition sutures I used a sliding clip technique and initially passed across the defect from lateral to medial 5 times to close the the core portion of the defect. We then unclamped the hilar structures and reverse order of how they were positioned initially. The vein was removed first followed by the artery. Time was marked and warm ischemia time was 14 minutes. There was no significant bleeding. I did use the second suture to close some of the superficial aspects of the capsule. We then placed Floseal and Tisseel over the defect although hemostasis was outstanding. There was minimal Gerota's fascia to reconstruct so I placed it back over the kidney and then lateralized the colon back into position. The specimen itself was collected in an Endo Catch bag which ultimately was extracted through the infraumbilical port. I did place some omentum over the surgical site. After undocking the robot we positioned a DANAE drain through the mid robotic port and this was sutured in place with a 3-0 nylon stitch. The upper midline inc ision was closed with a 0 Vicryl taaygx-vu-smics suture. 4-0 Monocryl to close the skin. The extraction site/infra umbilical incision was closed with a series of PDS [id number] sutures. Skin was closed with 4-0 Monocryl. The other ports were closed with 4-0 Monocryl and all incisions were covered with Dermabond. A drain sponge was placed over the drain site and he was reversed of anesthesia. The specimen was passed off the table, however gross inspection of the specimen revealed the tumor to be intact without any encroachment. At that time he was reversed of anesthesia and taken to the recovery room in stable condition. There were no complications. Alysha Harris assisted throughout the case from incision to closure and Dr. Ankit Wilhelm assisted through the wu portions of resection of the mass and reconstruction of the kidney. I attest to the content of the Intraoperative Record and any orders documented therein. Any exceptions are noted below.
[2024-10-27 15:37] LABS: Basophils # (auto) 0.04 K/uL (0.00-0.20); Basophils % (auto) 0.3 %; Eosinophils # (auto) 0.01 K/uL (0.00-0.50); Eosinophils % (auto) 0.1 %; Hematocrit (blood only) 40.7 % (42.0-52.0); Hemoglobin 13.5 g/dl (14.0-18.0); Immature Granulocytes # (auto) 0.07 K/uL (0.01-0.20); Immature Granulocytes % (auto) 0.5 %; Lymphocytes # (auto) 2.03 K/uL (1.20-3.40); Lymphocytes % (auto) 13.2 %; Mean Corpuscular Hgb Conc 33.2 g/dL (32.0-36.0); Mean Corpuscular Volume 93.3 fL (80.0-100.0); Mean Platelet Volume 11.3 fL (9.4-12.4); Monocytes % (auto) 2.6 %; Neutrophils # (auto) 12.82 K/uL (1.40-6.50); Neutrophils % (auto) 83.3 %; Platelet Count 183 K/uL (130-400); RDW Coefficient of Variation 13.8 % (11.5-14.5); RDW Standard Deviation 47.2 fL (36.4-46.3); Red Blood Count 4.36 M/uL (4.70-6.10); White Blood Count 15.37 K/ul (4.8-10.8)
[2024-10-27 15:53] LABS: BUN Creatinine Ratio 13.2 (10-20); Calcium 8.4 mg/dl (8.6-10.3); Potassium 4.5 mmol/L (3.5-5.1)
--- NOTE | 2024-10-27 16:02 | Anesthesiology Progress Note ---
Date of Service October 27, 2024 Anesthesia Post Procedure Vital Signs Vital Signs: Temp Pulse Resp BP Pulse Ox O2 Del Method O2 Flow Rate 10/27/24 15:50 81 13 151/86 H 95 Room Air 10/27/24 15:40 83 12 142/86 H 99 Oxymask 5 10/27/24 15:30 71 12 147/89 H 100 Oxymask 9 10/27/24 15:20 67 12 158/93 H 100 Oxymask 9 10/27/24 15:11 97.2 F L 72 12 153/93 H 96 Oxymask 9 10/27/24 09:17 98.1 F 72 18 123/75 99 Room Air Transfer of Care Handoff Completed per policy Notes Mental Status: alert / awake / arousable and participated in evaluation Patient Amnestic to Procedure: Yes Nausea / Vomiting: adequately controlled Pain: adequately controlled Airway Patency, RR, SpO2: stable & adequate BP & HR: stable & adequate Hydration State: stable & adequate Anesthetic Complications: no major complications apparent and Pt Satisfied with anesthetic care
[2024-10-27] MEDS ORDERED: hydrOXYzine HCl 10 MG TAB PO PRN (16:33)
[2024-10-27] MEDS ORDERED: traMADol HCL 50 MG TABLET PO PRN (16:33)
[2024-10-27] MEDS: SODIUM CHLORIDE 0.9% 1,000 ML IV SCH (17:37)
[2024-10-27] MEDS: traMADol HCL 50 MG TABLET PO PRN (17:45)
[2024-10-27] MEDS: ONDANSETRON INJ 2 MG/ML 2 ML VIAL IV PRN (18:06)
[2024-10-27] MEDS: ACETAMINOPHEN 325 MG TAB PO SCH (18:43)
[2024-10-27] MEDS: KETOROLAC TROMETHAMINE 15 MG/ML VIAL IV PRN (20:02)
[2024-10-27] MEDS: DOCUSATE SODIUM 100 MG CAP PO SCH (20:02)
--- NOTE | 2024-10-28 04:56 | Communication Note ---
Date of Service: October 28, 2024 This patient with partial left nephrectomy by Dr. Cha on 10/27/2024. Notified by nursing staff patient has had persistent nausea and vomiting of bilious material since his surgery. They do note that the nausea has been responsive to Zofran. Nurse notes patient continues to have nausea and vomiting with next dose of Zofran is not due until approximately 6:20 AM. At visit with patient at bedside and on physical exam his abdomen is soft without distention. He does have appropriate tenderness near surgical incisions. I suspect the patient's nausea vomiting may be related to residual effects of anesthesia or even potentially a slight ileus. I informed the nurses that they may administer the patient's next dose of Zofran early at this time and we will monitor his clinical response.
[2024-10-28 07:01] LABS: Basophils # (auto) 0.01 K/uL (0.00-0.20); Basophils % (auto) 0.1 %; Hematocrit (blood only) 34.5 % (42.0-52.0); Hemoglobin 11.8 g/dl (14.0-18.0); Immature Granulocytes # (auto) 0.09 K/uL (0.01-0.20); Immature Granulocytes % (auto) 0.5 %; Lymphocytes # (auto) 1.34 K/uL (1.20-3.40); Lymphocytes % (auto) 8.1 %; Mean Corpuscular Hemoglobin 31.2 pg (25.0-34.0); Mean Corpuscular Hgb Conc 34.2 g/dL (32.0-36.0); Mean Corpuscular Volume 91.3 fL (80.0-100.0); Mean Platelet Volume 11.4 fL (9.4-12.4); Monocytes # (auto) 1.12 K/uL (0.11-0.59); Monocytes % (auto) 6.7 %; Neutrophils # (auto) 14.04 K/uL (1.40-6.50); Neutrophils % (auto) 84.6 %; Platelet Count 182 K/uL (130-400); RDW Coefficient of Variation 13.7 % (11.5-14.5); RDW Standard Deviation 46.3 fL (36.4-46.3); Red Blood Count 3.78 M/uL (4.70-6.10)
[2024-10-28 07:33] LABS: BUN Creatinine Ratio 18.2 (10-20); Calcium 8.6 mg/dl (8.6-10.3); Creatinine Clr Calc Pharmacy 127.4 ml/min; Potassium 4.2 mmol/L (3.5-5.1)
[2024-10-28] MEDS: VENLAFAXINE HCL XR 75 MG CAPXR PO SCH (08:22)
--- NOTE | 2024-10-28 09:18 | Urology Progress Note ---
Date of Service October 28, 2024 Assessment & Plan (1) Renal mass: Plan Postop day #1 status post left robotic partial nephrectomy Recovery very much on pace, however he has some significant nausea and vomiting overnight Wonder if this is anesthesia driven and I hope to see some improvement throughout the day today He is not distended or tympanitic to imply ileus, etc. so this makes me think that medication caused Continue ambulation Admission and Anticipated Discharge Date Admission Date: October 27, 2024 Subjective Doing okay Some nausea and one vomiting episode overnight Pain is tolerable Has been ambulatory Physical Exam Physical Exam: Abdomen soft, incisions appropriate, DANAE outputserosanguineous, appropriate volume Results & Data Vital Signs (Past 12 Hours) Vital Signs Temp Pulse Resp BP Pulse Ox O2 Del Method 10/28/24 07:49 36.8 C 91 H 18 130/81 96 Room Air 10/27/24 23:12 36.3 C L 72 16 149/79 H 98 Room Air PG Care Time/CCT Total # of Minutes Spent Total Time Spent with Patient: Total time spent is greater than 50% in coordination of care (as documented) at patient's floor/unit and/or counseling patient: Coding Level of Care Code None Diagnoses Renal mass N28.89
[2024-10-29 06:11] LABS: Basophils # (auto) 0.02 K/uL (0.00-0.20); Basophils % (auto) 0.2 %; Hematocrit (blood only) 28.9 % (42.0-52.0); Hemoglobin 9.8 g/dl (14.0-18.0); Immature Granulocytes # (auto) 0.06 K/uL (0.01-0.20); Immature Granulocytes % (auto) 0.5 %; Lymphocytes # (auto) 2.69 K/uL (1.20-3.40); Lymphocytes % (auto) 22.9 %; Mean Corpuscular Hgb Conc 33.9 g/dL (32.0-36.0); Mean Corpuscular Volume 91.5 fL (80.0-100.0); Monocytes # (auto) 1.15 K/uL (0.11-0.59); Monocytes % (auto) 9.8 %; Neutrophils # (auto) 7.81 K/uL (1.40-6.50); Neutrophils % (auto) 66.6 %; Platelet Count 149 K/uL (130-400); RDW Standard Deviation 46.8 fL (36.4-46.3); Red Blood Count 3.16 M/uL (4.70-6.10); White Blood Count 11.73 K/ul (4.8-10.8)
[2024-10-29 06:21] LABS: BUN Creatinine Ratio 14.4 (10-20); Calcium 8.3 mg/dl (8.6-10.3); Creatinine Clr Calc Pharmacy 121.3 ml/min; Potassium 3.6 mmol/L (3.5-5.1)
[2024-10-29 07:17] VITALS: BP 123/70; PULSE 87; RESP 18; TEMP 97.9; O2SAT 96
--- NOTE | 2024-10-29 09:47 | Urology Progress Note ---
Date of Service October 29, 2024 Assessment & Plan (1) Renal mass: Plan Postop day #2 status post left robotic partial nephrectomy Overall feeling better today. No further episodes of emesis. Pain improved from yesterday. Afebrile with stable vitals Labs reviewed - hemoglobin 9.8 (11.8 yesterday), wbc 11.73, creatinine 1.04 Tolerating clear liquid diet DANAE intact Plan: Continue supportive care and pain management as needed Encourage ambulation Advance diet as tolerated Will recheck H&H Will reassess later today Admission and Anticipated Discharge Date Admission Date: October 27, 2024 Supervising Physician Co-Signing Physician Notes Subjectively doing extremely well, I do have some minor concerns about his drifting hemoglobin Will plan to repeat a hemoglobin at 11, he is completely hemodynamically stable at this stage If hemoglobin seems to stabilize or slow its descent, probably could be suited for discharge home later today or tomorrow morning Subjective Pt seen at bedside this AM Awake and resting in bed on arrival No acute distress Overall feeling better today Reports some mild-mod abd pain, managing with Tylenol DANAE with approx 50ml Denies f/c/n/v No emesis since yesterday morning Tolerating clear liquid diet + flatus/belching Voiding spontaneously He does report some mild hematuria Review of Systems Constitutional: as per Subjective / HPI Gastrointestinal: as per Subjective / HPI Genitourinary: + as per Subjective / HPI Physical Exam Constitutional: no acute distress Respiratory: no respiratory distress and no labored breathing Gastrointestinal (Abdomen): Abd soft, not distended. Incisions appropriate. Dermabond intact. DANAE intact Musculoskeletal: Head/Neck/Chest: normocephalic Skin: No visible rashes or lesions to exposed skin areas Neurologic: moves all extremities and awake Psychiatric: A+Ox3, euthymic affect Results & Data Vital Signs (Past 12 Hours) Vital Signs Temp Pulse Resp BP Pulse Ox O2 Del Method 10/29/24 07:17 36.6 C 87 18 123/70 96 Room Air 10/28/24 23:19 115/73 PG Care Time/CCT Total # of Minutes Spent Total Time Spent with Patient: Total time spent is greater than 50% in coordination of care (as documented) at patient's floor/unit and/or counseling patient: Coding Level of Care Code None Diagnoses Renal mass N28.89
[2024-10-29 11:47] LABS: Hematocrit (blood only) 27.9 % (42.0-52.0); Hemoglobin 9.5 g/dl (14.0-18.0)
--- NOTE | 2024-10-30 16:43 | Discharge Summary ---
Date of Service October 30, 2024 Admission HPI Per Admitting Provider 29-year-old male with a left renal mass who presents for robotic partial nephrectomy Admission Exam Per Admitting Provider Constitutional well developed and well nourished Neck neck nontender Respiratory normal respiratory effort; no respiratory distress and does not use accessory muscles Cardiovascular Rate/Rhythm: regular rate Vessels: radial pulses present Extremities: no edema Gastrointestinal (Abdomen) Inspection/Auscultation: abdomen normal to inspection Percussion/Palpation: abdomen soft; abdomen nontender and no guarding Musculoskeletal Head/Neck/Chest: normocephalic and head atraumatic Extremities: extremities normal to inspection Skin no rashes and no lesions Trauma: no evidence of skin trauma Neurologic awake; not obtunded Speech / Cognition: normal speech Motor/Sensory: no tremor Psychiatric Orientation: alert and oriented x 3 Genitourinary no CVA tenderness Lymphatic no lymphadenopathy Principal Diagnosis Left renal mass Discharge Exam Constitutional: no acute distress Respiratory: no respiratory distress and no labored breathing Gastrointestinal (Abdomen): Abd soft, not distended. Incisions appropriate. Dermabond intact. DANAE intact Musculoskeletal: Head/Neck/Chest: normocephalic Skin: No visible rashes or lesions to exposed skin areas Neurologic: moves all extremities and awake Psychiatric: A+Ox3, euthymic affect Discharge Data Allergies Allergy/AdvReac Type Severity Reaction Status Date / Time codeine Allergy Severe Anaphylaxis Verified 10/27/24 09:33 Procedures Performed Operation Date: 10/27/24 11:30 Actual Procedures p Robotic Assisted Laparoscopic Partial Nephrectomy - Left(Left) - Erlin Cha MD Hospital Course (1) Renal mass: Plan 29-year-old male admitted status post robotic partial left nephrectomy Postop day #1 status post left robotic partial nephrectomy Recovery very much on pace, however he has some significant nausea and vomiting overnight Wonder if this is anesthesia driven and I hope to see some improvement throughout the day today He is not distended or tympanitic to imply ileus, etc. so this makes me think that medication caused Continue ambulation Postop day #2 status post left robotic partial nephrectomy Overall feeling better today. No further episodes of emesis. Pain improved from yesterday. Afebrile with stable vitals Labs reviewed - hemoglobin 9.8 (11.8 yesterday), wbc 11.73, creatinine 1.04 Tolerating clear liquid diet DANAE intact Continue supportive care and pain management as needed Encourage ambulation Advance diet as tolerated Will recheck H&H Will reassess later today Repeat labs stable - showing hemoglobin 9.5, hematocrit 27.9. Okay for discharge home. DANAE drain to be removed prior to discharge. Discharge instructions were reviewed, all questions were answered Appropriate postoperative follow-up in place Total Time Total Time Spent Total Time Spent (In Minutes): 15 Discharge Plan Discharge Items Patient Disposition: Home - Self-Care Reason For Visit: Other Specified Disordres of Kidney and Ureter Discharge Diagnosis: Renal Mass Activity: Per Instructions section Lifting: No more than 10 pounds Bathing Comment: Okay to shower after discharge Sexual Activity: Wait until after follow-up appointment Exercise/Sports: Wait until after follow-up appointment Driving/Machine Use: No driving while taking prescription pain medication Non-emergency contact: Surgeon and Urologist Call non-emergency contact if: your pain is not controlled, you have a fever, your temperature is above 101, your wound has increased redness, your wound has increased drainage and your wound pain has increased Follow-up/Referrals: Erlin Cha MD [Physician] - 11/12/24 3:15 pm Reji Randall MD [Primary Care Provider] - Diet: Regular Addtl Attending Provider Instructions: Please take all medications as prescribed and keep all follow-ups as scheduled. Please call our office at [phone] with any questions, concerns or need to reschedule appointments for any reason. We are happy to assist you. Recovering at home: We recommend having someone with you for the first few days after surgery to help care for you. It is okay to shower tomorrow. Please avoid swimming, bathing or using hot tub until incisions are well healed. Avoid driving until you are not requiring pain medication any further. Walk at least a few times a day. Increase your distance, as you feel able. Stairs in your home are okay. Please avoid strenuous or sexual activity until your follow-up. We recommend using stool softener (i.e. Colace) to prevent constipation and straining, especially the first two weeks post operatively. Call [facility] at [phone] if you experience: Chest pain or trouble breathing (call [phone] or go to the hospital). Fever of 101F or higher Symptoms of infection at incision site, including redness or swelling, warmth, or bad-smelling drainage If you have catheter, and you notice: o Bloody urine or drainage that is dark red or has large clots (Please remember a small amount of blood is normal) o No drainage from the catheter for more than 6 hours o The catheter comes out of your bladder Pain that is not controlled with medicines Post op follow up: 11/12/24: 3:[address] Cha Pending Studies at Discharge: Yes (pathology) Stand-Alone Forms: My [facility] rollApp, Smoking Cessation Medications and DC Order Prescriptions: New tramadol 50 mg tablet 50 mg PO Q6H PRN (Reason: pain) Qty: 20 0RF Continued hydroxyzine HCl 10 mg tablet 10 mg PO TID PRN (Reason: Anxiety/ptsd) prazosin 1 mg capsule 1 mg PO QPM venlafaxine 75 mg tablet 75 mg PO QAM Discharge Orders: Discharge Order (Routine); Ordered 10/29/24 Ordered By: Tammy Garcia/Other Patient Handouts: Incision Care Admission Data Admit Date/Time: 10/27/24 15:15 Attending Provider: Erlin Cha Admit Provider: Erlin Cha Primary Care Provider: Reji Randall Other Interventions: Discharge Summary Assessment (RN) Last Done: 10/29/24 16:16 Coding Level of Care Code 93906 IN/OBS DISCH 30 MIN/LESS Diagnoses Renal mass N28.89
--- NOTE | 2024-11-01 05:26 | Coding Query ---
PATHOLOGY To promote full compliance with coding requirements relating to patient care, physician participation is requested in all cases of house parent uncertainty. Please assist us with the question(s) below: Please review the Pathology report and please document any relevant diagnosis(es) below: Diagnosis(es): Clear cell renal cell carcinoma Thank you ! MIRYAM Langston [facility]
== END 2024-10-29 17:07 | disposition home or self-care (01) | DRG 658 ==
LOC: ASU 08:56 → 3E 15:15